=== PATIENT | female | born 1945 | race Caucasian/White ===

== ENCOUNTER → 2017-01-07 | Outpatient (CLI) | payer OTHER ==
[~2017-01-07] MED LIST: ASPEC325 PO; ASPEC81 PO; BRL90 PO; CEPH500C PO; CHOL100010 PO; LPR25 PO; LPT40 PO; LSN5 PO; LXT PO; MEGA VITAMIN PO; NTRSLP4 SL; OMEG10007 PO; OXYC-57 PO; [UNRECOGNIZED DRUG - OTHER] PO
[2017-01-07 10:51] LABS: CHOLESTEROL/HDL RATIO 2.3
== END | disposition home or self-care (01) ==
LOC: C.LAB 09:09
PROVIDERS: ATTEND Family Medicine
DX: E78.5 Hyperlipidemia, unspecified (principal)

== ENCOUNTER → 2017-04-18 | Outpatient (CLI) | payer OTHER ==
[2017-04-18 10:26] LABS: ALKALINE PHOSPHATASE 60 U/L (45-117); ALT/SGPT 27 U/L (12-78); AST/SGOT 20 U/L (15-37); CHOLESTEROL 190 mg/dl (0-200); CHOLESTEROL/HDL RATIO 2.6; HDL CHOLESTEROL 72 mg/dl; LDL CHOLESTEROL CALCULATED 77 mg/dl; TRIGLYCERIDES 205 mg/dl (0-150); VERY LOW DENSITY LIPOPROT CALC 41 mg/dl
== END | disposition home or self-care (01) ==
LOC: C.LAB 08:31
PROVIDERS: ATTEND Family Medicine
DX: E78.5 Hyperlipidemia, unspecified (principal)

== ENCOUNTER → 2017-04-22 | Outpatient (CLI) | payer OTHER ==
--- NOTE | 2017-04-23 07:54 | MAMMOGRAPHY REPORT ---
BILATERAL DIGITAL SCREENING MAMMOGRAM TOMOSYNTHESIS WITH CAD: 04/22/2017 CLINICAL HISTORY: Routine screening. Patient has no complaints. TECHNIQUE: Breast tomosynthesis in addition to standard 2D mammography was performed. Current study was also evaluated with a Computer Aided Detection (CAD) system. COMPARISON: Comparison is made to exams dated: 04/18/2016 ultrasound, 04/18/2016 mammogram, 04/05/2016 m ammogram, 03/25/2015 mammogram, 02/09/2014 mammogram, and 02/05/2013 mammogram - [facility] enter. BREAST COMPOSITION: There are scattered areas of fibroglandular density in both breasts. FINDINGS: There are diffuse bilateral coarse and punctate macro calcifications, and stable focal asym metry in the right upper outer quadrant. No suspicious mass, architectural distortion or cluster of microcalcifications is seen. IMPRESSION: ACR BI-RADS CATEGORY 1: NEGATIVE There is no mammographic evidence of malignancy. A 1 year screening mammogram is recommended. The pa tient will receive written notification of the results. Approximately 10% of breast cancers are not detected with mammography. A negative mammographic report should not delay biopsy if a clinically suggestive mass is present. Erica Parham M.D. ay/:04/22/2017 16:54:22 [facility]: Kat BROWNLEE)(Luis Miguel), [facility] letter sent: Normal 1/2 BI-RADS Code: ACR BI-RADS Category 1: Negative
== END | disposition home or self-care (01) ==
LOC: C.MAMM 14:01
PROVIDERS: ATTEND Family Medicine
DX: Z12.31 Encounter for screening mammogram for malignant neoplasm of breast (principal)

== ENCOUNTER 2017-04-24 14:38 | Inpatient (IN) | payer OTHER ==
[~2017-04-24] VITALS: Ht 167.6 cm; Wt 70.2 kg
[2017-04-24] VITALS (26 sets, daily range): BP systolic 93–114; BP diastolic 60–84; PULSE 59–120; TEMP 36.5–36.8; O2SAT 82–99; Ht 167.6 cm; Wt 70.2 kg
[~2017-04-24 14:38] MED LIST changes: -ASPEC81 PO; -BRL90 PO; -LPR25 PO; -LPT40 PO; -LSN5 PO; -NTRSLP4 SL
[2017-04-24] MEDS ORDERED: HEPARIN SOD (PORCINE) 1000 UNIT/ML 10 ML VIAL ONE ×2 (14:54→15:54)
[2017-04-24] MEDS ORDERED: NiCARDipine HCL INJ 2.5 MG/ML 10 ML AMP ONE (14:54)
[2017-04-24] MEDS ORDERED: FENTANYL CITRATE INJ 50 MCG/1 ML 2 ML VIAL ONE (14:55)
[2017-04-24] MEDS ORDERED: ASPIRIN 324 MG CHEW ONE (14:55)
[2017-04-24] MEDS ORDERED: MIDAZOLAM HCL 1 MG/ML 2ML VIAL ONE (14:55)
[2017-04-24] MEDS ORDERED: NITROGLYCERIN/D5W 100MCG/ML 20ML SYR ONE (14:57)
[2017-04-24] MEDS ORDERED: SODIUM CHLORIDE 0.9% 1000ML 1,000 ML IV STA (14:59)
[2017-04-24] MEDS ORDERED: ASPIRIN 324 MG CHEW PO ONE (15:00)
--- NOTE | 2017-04-24 15:09 | Procedure Note ---
Pre-Mod Sedation Assessment General Date of Moderate Sedation: Apr 24, 2017. Vital Signs: Vital Signs Past 12 Hours Date Time Temp Pulse Resp B/P (MAP) Pulse Ox O2 Delivery O2 Flow Rate FiO2 04/24/17 14:57 73 04/24/17 14:45 67 16 172/102 100 Room Air 04/24/17 14:45 100 Room Air Review Cardiovascular: regular rate, rhythm, no gallop Abdomen: normal bowel sounds, non tender Lungs: chest non-tender, lungs clear Airway Class: III Pre-Sedation Airway Assessment Oral Cavity: WNL Able to Visualize Vocal Cords: No Short Thick Neck: No Hx of Sleep Apnea: No Smoking Status: Never Smoker Mallampati Classification: Class II ASA Classification: Class III Procedure Planning Contraindications-for Mod Sed: None Yes Notes The planned sedation has been discussed with the patient and consent obtained. I have identified the patient, determined the appropriateness of sedation and have assessed the patient immediately prior to the procedure. All medicine(s) and interventions are by my order.
[2017-04-24 15:10] LABS: BASO % 0.2 %; BASO ABS # 0.02 K/uL (0-0.2); COMPLETE YES; EOS % 1.3 %; HEMATOCRIT 42.5 % (37-47); IG% 0.4 %; LYMPH % 16.6 %; LYMPH ABS # 1.77 K/uL (1.2-3.4); MEAN CELL VOLUME 94.9 fL (80-100); MEAN CORPUSCULAR HEMOGLOBIN 31.7 pg (25-34); MEAN CORPUSCULAR HGB CONC 33.4 g/dl (32-36); MEAN PLATELET VOLUME 10.9 fL (7.4-10.4); MONO % 5.3 %; NEUT % 76.2 %; PLATELET COUNT 230 K/uL (130-400); RED BLOOD COUNT 4.48 M/uL (4.2-5.4); WHITE BLOOD COUNT 10.67 K/uL (4.8-10.8)
[2017-04-24 15:17] LABS: ISTAT CREATININE 0.9 mg/dl (0.6-1.3); ISTAT HEMOGLOBIN 14.3 g/dl (12.0-16.0); ISTAT IONIZED CALCIUM 1.18 mmol/l (1.12-1.32)
[2017-04-24 15:19] LABS: PROTHROMBIN TIME (PATIENT) 10.6 SECONDS (9.0-12.0)
[2017-04-24] MEDS ORDERED: ATROPINE SULFATE 0.1 MG/ML 10 ML SYR ONE (15:35)
[2017-04-24 15:48] LABS: BUN/CREATININE RATIO 24.9 (10-20); CALCIUM 9.4 mg/dl (8.5-10.1); CREATININE 0.94 mg/dl (0.60-1.20)
[2017-04-24 15:51] LABS: POTASSIUM 4.3 mmol/L (3.5-5.1)
[2017-04-24] MEDS ORDERED: TICAGRELOR 90 MG TAB PO ONE (15:52)
[2017-04-24] MEDS ORDERED: ACETAMINOPHEN 325 MG TAB PO PRN (16:30)
[2017-04-24] MEDS ORDERED: ONDANSETRON INJ 2 MG/ML 2 ML VIAL IV PRN (16:30)
[2017-04-24] MEDS ORDERED: NITROGLYCERIN 0.4 MG SL PER TAB CHARGE SL PRN (16:30)
[2017-04-24] MEDS: SODIUM CHLORIDE 0.9% 1000ML 1,000 ML IV SCH ×2 (16:30→23:49)
--- NOTE | 2017-04-24 16:40 | Procedure Note ---
Post-Mod Sedation Assessment General Date of Moderate Sedation Apr 24, 2017. Vital Signs: Vital Signs Past 12 Hours Date Time Temp Pulse Resp B/P (MAP) Pulse Ox O2 Delivery O2 Flow Rate FiO2 04/24/17 16:19 72 16 103/58 (73) 95 Room Air 04/24/17 16:04 73 16 102/63 (76) 99 Mask 6 04/24/17 15:04 75 18 155/89 99 Room Air 04/24/17 15:00 100 Room Air 04/24/17 14:57 73 04/24/17 14:45 67 16 172/102 100 Room Air 04/24/17 14:45 100 Room Air Review - Discharge Criteria Vital Signs Stable: Yes Alert/Oriented/Conversant: Yes Returned to Baseline Mental St: Yes Nausea Absent/Minimal: Yes Pain/Discomfort/Absent/Minimal: Yes Normal/Baseline Respirations: Yes Active Bleeding?: Yes Pt Received D/C Instructions: No Prescriptions Given: None Specific Proced. D/C Criteria Distal Pulses Present (Cardiac: Yes Groin site assessed-Card Cath: N/A Voided Prior To Discharge: N/A Discharged Patients Adult Escort/Transportation: Yes
--- NOTE | 2017-04-24 16:58 | Cardiac Catheterization ---
Procedure Note Procedure Date Apr 24, 2017. Pre-Procedure Diagnosis STEMI AUC Score 9 Post-Procedure Diagnosis Severe CAD, Successful PCI, Normal LV Systolic Function, Normal Intracardiac Pressures Procedure(s) Performed Coronary Angiography, Left Heart Cath, LV Angiography, Drug Eluting Stent Security Services Manager Liban Cashier Or Checker Stock Clerk(s) Jennifer Estimated Blood Loss 15 Medication(s) Fentanyl, Heparin, Nicardipine, Versed, Lidocaine 1% Ticagrelor Summary of Findings Indication: STEMI/Heart Alert Access: 6Fr Slender Right radial artery Catheters: [place]; JR 4 guide, AR1 guide Findings: LM - Angiographically normal LAD - 50-60% early-mid focal stenosis right after take-off of 1st septal; distal LAD normal as wraps around apex; Circumflex - Luminal irregularities RCA - Dominant, anterior/downward take-off, 10-20% proximal disease, 100% acute occlusion in mid-segment; distal luminal irregularities. LVEDP - 6 LVEF 60%, hypokinesis at inferior base. -- PCI -- Antithrombotic therapy: Heparin, Ticagrelor Procedure: RCA eventually cannulated with AR1 guide BMW wire passed across lesion into distal vessel Mid RCA lesion predilated with 2.5 compliant balloon Dilated lesion stented with 3.5 x 30 Feliz NORA Stent post-dilated with 3.5 noncompliant balloon IC vasodilators administered for spasm Post procedure MARSHALL 3 flow, stent well expanded with minimal residual stenosis and no apparent cardiac complications. Arterial Closure: TR Band Summary: 1. Inferior STEMI/Occluded mid RCA 2. Intermediate residual coronary artery disease - 50-60% early-mid LAD stenosis 3. Normal intracardiac filling pressure. Preserved LV function. 4. Successful PCI of mid RCA with one drug-eluting stent (3.5 x 30 Feliz). Recommendations: Admit to ICU for continued monitoring Loaded with Ticagrelor 180 in laborer pole crew Continue dual-antiplatelet therapy for 1 year Trend troponins until peak, Check Echo Low dose beta-martha/RAYMON as BP allows tomorrow AM High-dose statin Consult cardiac Rehab Hemodynamics Rest Ao: 145/72/105 Final Ao: 81/40/59 LV: 89/6 Recommendations PCI without planned CABG Specimens None Radiation Exposure (mGy) 2508 Contrast (mls) 210 Visi Fluids (cc crystalloids) 350 Drains None Anesthesia Moderate Procedural Complication(s) None Disposition ICU ACC Data Cardiac Status Clinical evaluation leading to the procedure CAD Presntation: STEMI STEMI or Non-STEMI: Symptom Onset Date/Time: 13:30 Thrombolytics: No Anginal Classification: CCS IV Heart Failure: No, NYHA Class: CCS I Cardiogenic Shock w/in 24Hrs: No Cardiac Arrest w/in 24Hrs: No Imaging studies past 6 months: No Stress studies past 6 months: No Coronary Anatomy Dominant: Right LAD (% Stenosis): Mid (50-60) RCA (% Stenosis): Mid (100) Left Ventricular Angiography EF (%): 60 Wall Motion: Inferior (Hypokinetic) Mitral Regurgitation: 1+ Closure Device Percutaneous Entry Location: Radial Closure Device: Radial Band Recommendations: PCI without planned CABG PCI Indication: Immediate PCI for STEMI First Noted: First EKG Lesion Segment Name: mid RCA Culprit Artery: Yes Stenosis Prior to Rx (%): 100 Chronic Total Occlusion: No IVUS: No FFR: No Pre-Procedure MARSHALL Flow: 0 Previously Treated Lesion: No Lesion Complexity: Non-High/Non-C Lesion Length (mm): 25 Thrombus Present: Yes Bifurcation Lesion: No Guidewire Across Lesion: Yes Guidewire: Stenosis Post-Procedure (%): 0 Post-Procedure MARSHALL Flow: 3 Device(s) Deployed: Yes Intraprocedure Events Significant Dissection: No Perforation: No
--- NOTE | 2017-04-24 17:47 | Critical Care Consultation ---
Critical Care Consultation Date of Consultation: Apr 24, 2017. Attending Physician: Reinier Louie MD Reason for Consultation: Inferior STEMI status post PCI of Mid RCA X1 durg eluating stent require close monitoring. History of Present Illness This is a 72 y/o female with PMHx of hypercholesteremia presented to the ED with left sided shoulder pain since this morning around 11:00am. Patient reports that she has been having left shoulder pain for past 2 days. She states since she had the left shoulder replacement in 2009, she would have intermittent shoulder pain and this pain was similar. However today in the morning her left shoulder pain was very intense, 10/10, constant, radiating across her chest, neck and jaw. She also felt pressure like sensation on her left chest this morning. Associated symptoms includes nausea and diaphoresis. She was seen by her PCP yesterday for physical and reports she had intermittent left shoulder pain without radiation. Her physical was normal. She thought she might have a muscle strain. She took 2 tabs of Aleve, which she usually takes for her pain but didn't relieve her pain this morning. She decided to come to the ED for further evaluation. Patient reports that she is active and never had any chest pain or SOB with exertion or rest. In ED EKG showed inferior STEMI. Heart Alert was called. Patient was immediately taken to the pathology laboratory director and Dr. Louie performed the procedure. She found to have occluded mid RCA s/p X1 NORA, 50-60% stenosis of early mid LAD, normal intracardiac filling pressure with preserved LV function. Patient was reevaluated in ICU after cath. She reports that she doesn't have any pain now. Denies SOB, palpitation, dizziness, lightheaded, headache, nausea , vomiting, abd pain or any other symptoms. Past Medical/Surgical History hypercholesteremia Social History Smoking Status: Never Smoker Allergies Coded Allergies: Alcohol (Verified Adverse Reaction, Intermediate, (FROM WINE) FLU LIKE SX' S, NAUSEA, DIARRHEA, 01/12/10) Mary (Verified Adverse Reaction, Mild, HEADACHE, NAUSEA, 01/12/10) No Known Allergies (Verified , 01/12/10) NO KNOWN DRUG ALLERGIES Home Medications Scheduled Aspirin Enteric Coated (Ecotrin Or Generic *), 325 MG PO BID Cephalexin Monohydrate (Keflex), 500 MG PO QID Cholecalciferol (Vitamin D), 4,000 INTER.UNIT PO DAILY Fish Oil (Oketo-3), 1,800 MG PO DAILY Laxative (Laxative), 1 TAB PO DAILY PRN Oxycodone/Acetaminophen 5MG/325MG (Percocet 5MG/325MG), 1 TABLET PO Q4HR PRN [Calmax Powder], 1 TBS PO QID [Kodak Vitamin], 2 TAB PO DAILY Current Inpatient Medications Current Inpatient Medications Medications (Trade) Dose Ordered Sig/Molly Route Start Time Stop Time Status Last Admin Dose Admin Nitroglycerin (Nitrostat Tab) 0.4 mg UD PRN SL 04/24/17 16:30 05/24/17 16:29 Sodium Chloride 1,000 ml @ 125 mls/hr Q8H IV 04/24/17 16:30 04/25/17 00:29 Ondansetron HCl (Zofran Inj) 4 mg Q6H PRN IV 04/24/17 16:30 05/24/17 16:29 Aspirin (Ecotrin Tab) 81 mg QAM PO 04/25/17 09:00 05/25/17 08:59 Atorvastatin Calcium (Lipitor Tab) 80 mg QAM PO 04/25/17 09:00 05/25/17 08:59 Metoprolol Tartrate (Lopressor Tab) 12.5 mg Q12 PO 04/25/17 09:00 05/25/17 08:59 Lisinopril (Zestril Tab) 5 mg QAM PO 04/25/17 09:00 05/25/17 08:59 Acetaminophen (Tylenol Tab) 650 mg Q4H PRN PO 04/24/17 16:30 05/24/17 16:29 Ticagrelor (Brilinta Tab) 90 mg BID PO 04/24/17 21:00 05/24/17 20:59 Review of Systems Constitutional: No fever, No chills Eyes: No worsening of vision ENT: No trouble swallowing Respiratory: No cough, No sputum, No wheezing, No shortness of breath, No dyspnea on exertion, No dyspnea at rest Cardiovascular: No chest pain, No orthopnea, No PND, No edema, No claudication , No palpitations Abdomen: No pain, No nausea, No vomiting, No diarrhea, No constipation Musculoskeletal: No joint pain, No muscle pain, No swelling, No calf pain Genitourinary - Female: No dysuria Neurologic: No memory loss, No weakness, No numbness/tingling, No balance problems Endocrine: No fatigue Hematologic / Lymphatic: No abnormal bleeding/bruising, No clotting problems Integumentary: No rash Physical Exam Date Time Temp Pulse Resp B/P (MAP) Pulse Ox O2 Delivery O2 Flow Rate FiO2 04/24/17 16:19 72 16 103/58 (73) 95 Room Air 04/24/17 16:04 73 16 102/63 (76) 99 Mask 6 04/24/17 15:04 75 18 155/89 99 Room Air 04/24/17 15:00 100 Room Air 04/24/17 14:57 73 04/24/17 14:45 67 16 172/102 100 Room Air 04/24/17 14:45 100 Room Air General Appearance: well-appearing, WD/WN, no apparent distress Head: normocephalic, atraumatic Eyes: PERRLA, no discharge, EOMI, sclerae normal, conjunctivae normal ENT: normal nasal exam, normal mouth exam, normal throat exam Neck: no tenderness, trachea midline, supple, no thyromegaly Respiratory: breath sounds normal, clear to auscultation, no respiratory distress Cardiovasular: regular rate/rhythm, normal S1S2, no M/G/R Abdomen: non tender, normal bowel sounds, no rebound, no masses Upper Extremities: no edema Lower Extremities: no edema Neuro: alert, oriented x 3, normal sensation, normal speech Psychiatric: normal affect Laboratory Results Last 24 Hours Test 04/24/17 14:59 04/24/17 15:00 04/24/17 15:04 Bedside Troponin I 0.380 ng/ml White Blood Count 10.67 K/uL Red Blood Count 4.48 M/uL Hemoglobin 14.2 g/dL Hematocrit 42.5 % Mean Corpuscular Volume 94.9 fL Mean Corpuscular Hemoglobin 31.7 pg Mean Corpuscular Hemoglobin Concent 33.4 g/dl Platelet Count 230 K/uL Mean Platelet Volume 10.9 fL Neutrophils (%) (Auto) 76.2 % Lymphocytes (%) (Auto) 16.6 % Monocytes (%) (Auto) 5.3 % Eosinophils (%) (Auto) 1.3 % Basophils (%) (Auto) 0.2 % Neutrophils # (Auto) 8.13 K/uL Lymphocytes # (Auto) 1.77 K/uL Monocytes # (Auto) 0.57 K/uL Eosinophils # (Auto) 0.14 K/uL Basophils # (Auto) 0.02 K/uL RDW Standard Deviation 51.8 fL RDW Coefficient of Variation 14.9 % Immature Granulocyte % (Auto) 0.4 % Immature Granulocyte # (Auto) 0.04 K/uL Prothrombin Time 10.6 SECONDS Prothromb Time International Ratio 1.0 Activated Partial Thromboplast Time 25.6 SECONDS Partial Thromboplastin Ratio 1.0 Sodium Level 141 mmol/L Potassium Level 4.3 mmol/L Chloride Level 108 mmol/L Carbon Dioxide Level 23 mmol/L Anion Gap 10.0 mmol/L 14.0 mmol/L Blood Urea Nitrogen 23 mg/dl Creatinine 0.94 mg/dl Est Creatinine Clear Calc Drug Dose 54.5 ml/min Estimated GFR () 69.8 Estimated GFR (Non- 60.2 BUN/Creatinine Ratio 24.9 Random Glucose 104 mg/dl Calcium Level 9.4 mg/dl Bedside Hemoglobin 14.3 g/dl Bedside Hematocrit 42 % Bedside Sodium 140 mEq/L Bedside Potassium 4.1 mEq/L Bedside Chloride 106 mEq/L Bedside Total CO2 25 mEq/l Bedside Blood Urea Nitrogen 24 mg/dl Bedside Creatinine 0.9 mg/dl Bedside Glucose (other) 104 mg/dl Bedside Ionized Calcium ([place]) 1.18 mmol/l Assessment & Plan This is a 72 y/o female with PMHx of hypercholesteremia presented to the ED with left sided shoulder pain radiating to the neck, jaw and across shoulder. Inferior STEMI/occluded mid RCA s/p PCI of mid RCA X1 NORA. Neuro - * CAM ICU: NEGATIVE. * Acetaminophen 650mg q4h prn Cardiac - * Inferior STEMI/occluded mid RCA s/p PCI of mid RCA X1 drug eluating stent * Ticagrelor 90mg BID * Metoprolol 12.5mg BID and Lisinopril 5mg, monitor BP tomorrow am and adjust the dose accordingly * Atorvastatin 80mg * ASA 81mg daily * Nitro 0.4mg prn for pain * EKG with chest pain * Echo tomorrow * Patient needs to continue dual antiplatelet therapy for 1 yr * Consult cardiac rehab * Patient received heparin and bolus of ticagrelor prior to the procedure * Trend troponin q8h until peak Respiratory - * No h/o pulmonary disease. * Monitor pulse oximetry. * Supplemental O2 as needed. GI - * Diet : regular diet * Zofran 4mg q6h prn (QTc 441) RENAL/LYTES - * NSS @ 125mls/hr * Electrolytes are stable, check tomorrow am - * No Ramirez ENDO - * Order Hgb A1c - pending * No h/o DM * Order LDL direct - pending HEME - * No hx of heme problem * H&H and plt stable * Continue to monitor ID - * No concerns for infection at this point. * Will monitor fever curve. LINES/IV ACCESS - * PIVs intact DVT PROPHYLAXIS - * Ticagrelor, ASA Resident Physician Supervision Note: Dr. Miller was resident physician during care of patient. I separately evaluated patient and did history and exam. I discussed the case with the resident and generally agree with the findings and plan. routine post-cardiac cath care. Documented By: Inocencio Melchor DO
--- NOTE | 2017-04-24 18:04 | DIAGNOSTIC IMAGING REPORT ---
CHEST ONE VIEW PORTABLE CLINICAL HISTORY: 72 years-old Female presenting with CHEST PAIN. TECHNIQUE: Portable upright AP view of the chest was obtained. COMPARISON: None. FINDINGS: The presence of multiple overlying external leads degrade image quality. Cardiomediastinal silhouette normal. Lungs and pleural spaces clear. Left shoulder arthroplasty. Upper abdomen normal. IMPRESSION: 1. No acute cardiopulmonary disease. Electronically signed by: Hadley Bobby M.D. 04/24/2017 6:03 PM Dictated Date/Time: 04/24/2017 6:02 PM
--- NOTE | 2017-04-24 18:07 | EMERGENCY ROOM VISIT NOTE ---
History Report prepared by Jamison: Luz Romero Under the Supervision of: Dr. Inocencio Stewart M.D. First contact with patient: 14:48 Chief Complaint: CHEST PAIN Stated Complaint: CHEST PAIN, PAIN DOWN NECK, SHOULDER AND ARM History of Present Illness The patient is a 72 year old female who presents to the Emergency Room with complaints of intermittent chest pain for the past 2 days. Her pain is located in the left side of her chest and radiates into her left shoulder, down her left arm, and up into the left side of her neck. She has chronic left shoulder pain due to a previous shoulder replacement surgery, but states that this feels different. She took Aleve without any relief of her symptoms. This morning her pain began around 11am while she was cleaning her floor. She experienced some nausea and diaphoresis at that time. She states that her pain was severe. It is now less intense and she rates it as a 5/10 in severity. The patient denies shortness of breath, vomiting, or recent falls. She saw her PCP yesterday for an annual physical and states that everything was fine. Source of History: patient Onset: 2 days ago Position: chest Symptom Intensity: 5/10 Quality: other (radiating) Timing: intermittent Associated Symptoms: + diaphoresis, + neck pain (left sided), + nausea, No SOB, No vomiting Note: Pt has pain in left shoulder and down left arm. Review of Systems See HPI for pertinent positives & negatives. A total of 10 systems reviewed and were otherwise negative. Past Medical & Surgical Medical Problems: (1) AMI (acute myocardial infarction) Old medical records were reviewed. Nurse's notes were reviewed and I agree with. Family History Non-pertinent due to advanced age. Social History Smoking Status: Unknown if Ever Smoked Marital Status: Housing Status: lives alone Occupation Status: retired Current/Historical Medications Scheduled Aspirin Enteric Coated (Ecotrin Or Generic *), 325 MG PO BID Cephalexin Monohydrate (Keflex), 500 MG PO QID Cholecalciferol (Vitamin D), 4,000 INTER.UNIT PO DAILY Fish Oil ([place]-3), 1,800 MG PO DAILY Laxative (Laxative), 1 TAB PO DAILY PRN Oxycodone/Acetaminophen 5MG/325MG (Percocet 5MG/325MG), 1 TABLET PO Q4HR PRN [Calmax Powder], 1 TBS PO QID [Kodak Vitamin], 2 TAB PO DAILY Allergies Coded Allergies: Alcohol (Verified Adverse Reaction, Intermediate, (FROM WINE) FLU LIKE SX' S, NAUSEA, DIARRHEA, 01/12/10) Mary (Verified Adverse Reaction, Mild, HEADACHE, NAUSEA, 01/12/10) No Known Allergies (Verified , 01/12/10) NO KNOWN DRUG ALLERGIES Physical Exam Vital Signs Date Time Temp Pulse Resp B/P (MAP) Pulse Ox O2 Delivery O2 Flow Rate FiO2 04/24/17 16:34 82 112/68 (83) 95 04/24/17 16:34 82 112/68 (83) 90 04/24/17 16:33 83 107/71 (83) 04/24/17 16:33 83 107/71 (83) 04/24/17 16:30 36.5 82 20 107/71 94 Room Air 04/24/17 16:30 36.8 120 82 04/24/17 16:30 36.8 120 96 Room Air 04/24/17 16:19 72 16 103/58 (73) 95 Room Air 04/24/17 16:04 73 16 102/63 (76) 99 Mask 6 04/24/17 15:04 75 18 155/89 99 Room Air 04/24/17 15:00 100 Room Air 04/24/17 14:57 73 04/24/17 14:45 67 16 172/102 100 Room Air 04/24/17 14:45 100 Room Air Physical Exam General: Well developed well nourished non ill appearing older female that appears younger than stated age in no acute distress, breathing comfortably on room air. Normal speech HEENT: Normal cephalic atraumatic. Pupils are equal round and reactive to light. Extraocular movements are intact. Oropharynx is pink with moist mucous membranes. No swelling of the mouth lips or tongue. Neck: Supple with a midline trachea. No meningeal signs or stiffness, no JVD or bruits. No Stridor. Chest: Clear to auscultation bilaterally. No wheezes or rhonchi. No increased work of breathing. Heart: regular rate and rhythm. Abdomen: Soft nontender, nondistended without rebound guarding or rigidity. Extremities: No cyanosis clubbing or edema. No calf tenderness or assymetry Spine/Back. Non tender to palpation. No CVA tenderness Skin: Good turgor without rashes. Neurologic exam: Cranial nerves two through 12 are intact. Motor and sensation are intact and symmetrical throughout. Medical Decision & Procedures ER Provider Diagnostic Interpretation: Chest x-ray as interpreted by myself reveals no acute infiltrate, failure, or pneumothorax. Laboratory Results 04/24/17 15:00 Red Blood Count 4.48, Mean Corpuscular Volume 94.9, Mean Corpuscular Hemoglobin 31.7, Mean Corpuscular Hemoglobin Concent 33.4, Mean Platelet Volume 10.9, Neutrophils (%) (Auto) 76.2, Lymphocytes (%) (Auto) 16.6, Monocytes (%) (Auto) 5.3, Eosinophils (%) (Auto) 1.3, Basophils (%) (Auto) 0.2, Neutrophils # (Auto) 8.13, Lymphocytes # (Auto) 1.77, Monocytes # (Auto) 0.57, Eosinophils # (Auto) 0.14, Basophils # (Auto) 0.02 04/24/17 15:00 Test 04/24/17 14:59 04/24/17 15:00 04/24/17 15:04 Bedside Troponin I 0.380 ng/ml (0-0.045) White Blood Count 10.67 K/uL (4.8-10.8) Red Blood Count 4.48 M/uL (4.2-5.4) Hemoglobin 14.2 g/dL (12.0-16.0) Hematocrit 42.5 % (37-47) Mean Corpuscular Volume 94.9 fL (80-100) Mean Corpuscular Hemoglobin 31.7 pg (25-34) Mean Corpuscular Hemoglobin Concent 33.4 g/dl (32-36) Platelet Count 230 K/uL (130-400) Mean Platelet Volume 10.9 fL (7.4-10.4) Neutrophils (%) (Auto) 76.2 % Lymphocytes (%) (Auto) 16.6 % Monocytes (%) (Auto) 5.3 % Eosinophils (%) (Auto) 1.3 % Basophils (%) (Auto) 0.2 % Neutrophils # (Auto) 8.13 K/uL (1.4-6.5) Lymphocytes # (Auto) 1.77 K/uL (1.2-3.4) Monocytes # (Auto) 0.57 K/uL (0.11-0.59) Eosinophils # (Auto) 0.14 K/uL (0-0.5) Basophils # (Auto) 0.02 K/uL (0-0.2) RDW Standard Deviation 51.8 fL (36.4-46.3) RDW Coefficient of Variation 14.9 % (11.5-14.5) Immature Granulocyte % (Auto) 0.4 % Immature Granulocyte # (Auto) 0.04 K/uL (0.00-0.02) Prothrombin Time 10.6 SECONDS (9.0-12.0) Prothromb Time International Ratio 1.0 (0.9-1.1) Activated Partial Thromboplast Time 25.6 SECONDS (21.0-31.0) Partial Thromboplastin Ratio 1.0 Est Creatinine Clear Calc Drug Dose 54.5 ml/min Estimated GFR () 69.8 Estimated GFR (Non- 60.2 BUN/Creatinine Ratio 24.9 (10-20) Calcium Level 9.4 mg/dl (8.5-10.1) Bedside Hemoglobin 14.3 g/dl (12.0-16.0) Bedside Hematocrit 42 % (37-47) Bedside Sodium 140 mEq/L (135-144) Bedside Potassium 4.1 mEq/L (3.3-5.0) Bedside Chloride 106 mEq/L (101-112) Bedside Total CO2 25 mEq/l (24-31) Anion Gap 14.0 mmol/L (16-25) Bedside Blood Urea Nitrogen 24 mg/dl (7-18) Bedside Creatinine 0.9 mg/dl (0.6-1.3) Bedside Glucose (other) 104 mg/dl (70-99) Bedside Ionized Calcium ([place]) 1.18 mmol/l (1.12-1.32) Laboratory studies as stated above per my review. Medications Administered Medications (Trade) Dose Ordered Sig/Molly Route Start Time Stop Time Status Last Admin Dose Admin Heparin Sodium (Porcine) (Heparin Iv Bolus) 10,000 unit STK-MED ONCE .ROUTE 04/24/17 14:54 04/24/17 14:55 DC 04/24/17 14:54 10,000 UNIT Fentanyl Citrate (Fentanyl Inj) 100 mcg STK-MED ONCE .ROUTE 04/24/17 14:55 04/24/17 14:56 DC 04/24/17 14:55 25 MCG Midazolam HCl (Versed Inj) 2 mg STK-MED ONCE .ROUTE 04/24/17 14:55 04/24/17 14:56 DC 04/24/17 14:55 1 MG Aspirin (Aspirin Chew) 324 mg STK-MED ONCE .ROUTE 04/24/17 14:55 04/24/17 14:56 DC 04/24/17 15:06 324 MG Atropine Sulfate (Atropine Sulfate) 1 mg STK-MED ONCE .ROUTE 04/24/17 15:35 04/24/17 15:36 DC 04/24/17 15:35 1 MG Ticagrelor (Brilinta Tab) 180 mg STK-MED ONCE PO 04/24/17 15:52 04/24/17 15:53 DC 04/24/17 15:52 180 MG Heparin Sodium (Porcine) (Heparin Iv Bolus) 10,000 unit STK-MED ONCE .ROUTE 04/24/17 15:54 04/24/17 15:55 DC 04/24/17 15:54 1,000 UNIT Sodium Chloride 1,000 ml @ 125 mls/hr Q8H IV 04/24/17 16:30 04/25/17 00:29 04/24/17 16:30 125 MLS/HR ECG Indication: chest pain Rate (beats per minute): 63 Rhythm: normal sinus Findings: other (inferior FL with reciprocal lateral and anterior changes) Comparison ECG Date: no prior available ED Course 1448: Past medical records reviewed. The patient was evaluated in room B2, and a complete history and physical examination were performed. A heart alert was called in the ED at this time. 1457: Dr. Louie of cardiology arrived in the patient's room. We discussed her case and he will take her to the cardiac catheterization lab for further evaluation. 1459: NSS 1000 ml @ 999 mls/hr IV 1501: I updated the patient on her results and treatment plan. I answered all pertaining questions that she had. She expressed understanding and verbalized agreement. Medical Decision Differential diagnoses includes acute FL, cardiac disease, arrhythmia, electrolyte or metabolic abnormality. This patient comes in as described above. She was placed in room B2. The nurses came and got me as they were concerned about her EKG. I look at her EKG and she has ST segment elevations inferiorly with reciprocal changes laterally and anteriorly concerning for acute FL, likely RCA infarct. I went and saw the patient immediately. She had chest pain earlier and has only a mild amount now. She has stable vital signs she is normotensive. I called a heart alert promptly to get the care expedited as it was clear that this patient is having an acute FL. She was given aspirin chewable. Chest x-ray does not show any acute CHF or acute findings. She was not given any nitroglycerin as her symptoms were mild and there was concern for RV infarct. Dr. Louie promptly arrived and is going to take her to the [facility] for further treatment and evaluation and intervention. Medication Reconcilliation Current Medication List: was personally reviewed by me Blood Pressure Screening Patient's blood pressure: Normal blood pressure Consults Time Called: [id number] Consulting Physician: Dr. Louie Returned Call: [phone] Dr. Louie of cardiology arrived in the patient's room. We discussed her case and he will take her to the cardiac catheterization lab for further evaluation. Impression Primary Impression: Acute inferior myocardial infarction Scribe Attestation The scribe's documentation has been prepared under my direction and personally reviewed by me in its entirety. I confirm that the note above accurately reflects all work, treatment, procedures, and medical decision making performed by me. Departure Information Dispostion Other (cardiac catheterization lab) Referrals Jesse Dunlap M.D. (PCP) Patient Instructions My [facility]
--- NOTE | 2017-04-24 19:13 | HISTORY & PHYSICAL EXAMINATION ---
DATE OF ADMISSION: 04/24/2017 HISTORY OF PRESENT ILLNESS: Ms. So is a very pleasant 72-year-old woman with no real significant past medical history who was admitted today in the setting of acute onset of chest pain and found to have inferior ST elevations on MRI and was treated emergently in the cardiac catheterization lab. The patient noted intermittent chest pain over the last 2 days. Chest pain had been brief and rare but new. This morning at approximately 11:00 a.m., the patient developed severe unrelenting substernal chest pain with radiation to her left arm. The pain persisted for approximately an hour or so before she drove herself to the hospital. Upon arrival, the patient had 4/10 residual chest pain and EKG showed sinus rhythm but significant inferior ST elevations. Heart alert was activated and the patient was taken emergently to the cardiac catheterization lab where coronary angiography was performed via the right radial artery. The patient was found to have 50-60% mid LAD stenosis and an occluded mid RCA. She was treated with PCI with 1 drug-eluting stent placed to her mid RCA. A good angiographic result was obtained. Post-procedure she had minimal residual chest pain, was hemodynamically stable and was transferred to the ICU. PAST MEDICAL HISTORY: 1. Hypercholesterolemia. 2. Osteoarthritis status post shoulder replacement. 3. Vitamin D deficiency. MEDICATIONS: Include: 1. Aspirin 325. 2. Vitamin D 4000 units p.o. daily. 3. Fish oil 800 mg p.o. daily. 4. Laxative. 5. Oxycodone/acetaminophen 1 tab p.o. q.4 hours p.r.n. 6. CalMax powder 1 tab p.o. q.i.d. 7. Kodak Vitamin. ALLERGIES: ALLERGIC TO MELISSA. No other known drug allergies. FAMILY HISTORY: No family history of premature coronary disease or sudden cardiac . SOCIAL HISTORY: Is moving back to the [facility] from [place]. Her this October. Denies any significant tobacco, alcohol or other illicit drugs. REVIEW OF SYSTEMS: Ten point review of systems completed and otherwise negative unless stated in HPI. PHYSICAL EXAMINATION: VITAL SIGNS: On presentation, the patient was afebrile, pulse was 67, blood pressure was 172/107, satting 100% on room air. GENERAL: Post procedure the patient appears comfortable in no acute distress. HEENT: Sclerae are anicteric. Oropharynx is clear. Mucous membranes are moist. NECK: Supple, no lymphadenopathy. LUNGS: Clear to auscultation bilaterally. HEART: Regular rate and rhythm with no murmurs, rubs or gallops. ABDOMEN: Soft, nontender, nondistended with positive bowel sounds. EXTREMITIES: Warm. She has 2+ radial pulses bilaterally. TR band now in place. SKIN: Shows no rashes or lesions. NEUROLOGIC: Nonfocal. DATA: White blood cell count was 10.7, hemoglobin 14.2, platelets of 230. INR 1.0. Sodium 141, potassium 4.3, BUN 23, creatinine 0.9. Point of care troponin was 0.388. Chest x-ray was not obtained. Initial EKG showed sinus rhythm with up to [address] elevations in II, III, and aVF with reciprocal ST depressions in 1, aVL, and V2. IMPRESSION AND PLAN: 1. Inferior STEMI/occluded mid RCA. 2. Residual intermediate mid LAD stenosis. 3. Hyperlipidemia. 4. Preserved left ventricular function with inferior hypokinesis. 5. Mild mitral regurgitation on LV gram. Patient is here with an inferior ST elevation IL now status post primary percutaneous coronary intervention with 1 drug-eluting stent to mid RCA. Post-procedure she is hemodynamically and electrically stable and chest pain free. We will plan to admit to ICU for additional monitoring. She was loaded with ticagrelor in the clinical laboratory manager. Will plan to continue on dual antiplatelet therapy for at least the next year. We will plan to obtain echocardiogram tomorrow and trend her troponins until they peak. The patient was started on high intensity statin. We will plan to start on low dose beta martha, RAYMON inhibitor tomorrow as blood pressure allows. Will plan for cardiac rehabilitation as an outpatient. ARTURO
[2017-04-24] MEDS: TICAGRELOR 90 MG TAB PO SCH (21:09)
[2017-04-25] VITALS (15 sets, daily range): BP systolic 85–119; BP diastolic 49–65; PULSE 57–69; TEMP 36.6–37.2; O2SAT 93–98
[2017-04-25 05:35] LABS: BASO % 0.2 %; BASO ABS # 0.02 K/uL (0-0.2); COMPLETE YES; EOS % 2.5 %; HEMATOCRIT 37.6 % (37-47); IG% 0.5 %; LYMPH % 14.6 %; LYMPH ABS # 1.25 K/uL (1.2-3.4); MEAN CELL VOLUME 96.4 fL (80-100); MEAN CORPUSCULAR HEMOGLOBIN 31.3 pg (25-34); MEAN CORPUSCULAR HGB CONC 32.4 g/dl (32-36); MONO % 8.3 %; NEUT % 73.9 %; PLATELET COUNT 193 K/uL (130-400); WHITE BLOOD COUNT 8.54 K/uL (4.8-10.8)
[2017-04-25 06:03] LABS: BUN/CREATININE RATIO 24.8 (10-20); CALCIUM 8.4 mg/dl (8.5-10.1); CREATININE 0.81 mg/dl (0.60-1.20); MAGNESIUM 2.3 mg/dl (1.8-2.4)
[2017-04-25 06:13] LABS: PHOSPHORUS 4.3 mg/dl (2.5-4.9)
[2017-04-25] MEDS ORDERED: PERFLUTREN LIPID MICROSPHERE (DEFINITY) IV ONE (06:42)
[2017-04-25 06:55] LABS: ESTIMATED AVERAGE GLUCOSE 117 mg/dl; HA1C FLAG Normal (Normal)
[2017-04-25] MEDS: ATORVASTATIN 40 MG TAB PO SCH ×2 (07:32→09:02)
[2017-04-25] MEDS: ASPIRIN 81 MG ECTAB PO SCH (07:33)
[2017-04-25] MEDS: METOPROLOL TARTRATE 25 MG TAB PO SCH ×2 (07:34→20:50)
[2017-04-25] MEDS: LISINOPRIL 5 MG TAB PO SCH (07:34)
[2017-04-25] MEDS: TICAGRELOR 90 MG TAB PO SCH ×2 (08:23→20:50)
--- NOTE | 2017-04-25 09:23 | Critical Care Progress Note ---
Critical Care Progress Note Date of Service Apr 25, 2017. Attending Dr. Melchor Subjective Patient was seen at the bedside. No acute event overnight. Denies any chest pain , shoulder pain, SOB, palpitation, lightheaded or any other complaints. Objective Vital signs were reviewed GENERAL - Alert, well appearing, lying down on bed, no acute distress HEAD - NC/AT EYES - PERRL with EOMI bilaterally. Sclera anicteric. EARS - No deformities of external structures noted on gross examination bilaterally. MOUTH/OROPHARYNX - Without perioral cyanosis. Lips, buccal mucosa, and tongue normal and mucous membranes are moist. NECK - Supple, No lymphadenopathy, No nuchal rigidity, No JVD LUNGS - Chest wall symmetric. Good air movement bilaterally. No wheezing or rhonchi was noted. CARDIAC - RRR, normal S1/S2. No murmur, rubs, or gallops appreciated. ABDOMEN - Soft, non-tender, normo-active bowel sounds, no masses, no rebound or guarding. No palpable masses, hepatosplenomegaly, or ascites noted. EXTREMITIES - No edema, No clubbing/peripheral cyanosis. Calves supple. SKIN - Warm, dry, intact. No rash NEUROLOGIC - A&Ox3. Speech normal. Sensory intact to light touch throughout. PSYCH - Mood and affect appropriate. Assessment & Plan This is a 72 y/o female with PMHx of hyperlipidemia presented to the ED with left sided shoulder pain radiating to the neck, jaw and across shoulder. Inferior STEMI/occluded mid RCA s/p PCI of mid RCA X1 NORA. Patient is stable to be downgraded to [facility]. Neuro - * CAM ICU: NEGATIVE. * Acetaminophen 650mg q4h prn Cardiac - * Inferior STEMI/occluded mid RCA s/p PCI of mid RCA X1 drug eluating stent * Ticagrelor 90mg BID * Metoprolol 12.5mg BID and Lisinopril 5mg, BP 102/59 * Atorvastatin 80mg * ASA 81mg daily * Nitro 0.4mg prn for pain * EKG with chest pain * Echo was today morning - report pending * Patient needs to continue dual antiplatelet therapy for 1 yr * Consult cardiac rehab * Patient received heparin and bolus of ticagrelor prior to the cath * Troponin trend down Respiratory - * No h/o pulmonary disease. * Monitor pulse oximetry. * Supplemental O2 as needed. GI - * Diet : regular diet * Zofran 4mg q6h prn (QTc 441) RENAL/LYTES - * d/abhijit IVF * Electrolytes are stable, check tomorrow am - * No Ramirez ENDO - * Hgb A1c - 5.7 * No h/o DM * LDL direct - 43 HEME - * No hx of heme problem * H&H and plt stable ID - * No concerns for infection at this point. * Will monitor fever curve. LINES/IV ACCESS - * PIVs intact DVT PROPHYLAXIS - * Ticagrelor, ASA Resident Physician Supervision Note: Dr. Miller was resident physician during care of patient. I separately evaluated patient and did history and exam. I discussed the case with the resident and generally agree with the findings and plan. Discussed with patient clinical decisions to take high dose statin in the setting of recent acute WA. stable for downgrade to telemetry. Documented By: Inocencio Melchor DO Consults & Procedures Consultants: none Procedures: Cardiac catheterization Data Medications: Current Inpatient Medications Medications (Trade) Dose Ordered Sig/Molly Route Start Time Stop Time Status Last Admin Dose Admin Nitroglycerin (Nitrostat Tab) 0.4 mg UD PRN SL 04/24/17 16:30 05/24/17 16:29 Ondansetron HCl (Zofran Inj) 4 mg Q6H PRN IV 04/24/17 16:30 05/24/17 16:29 Aspirin (Ecotrin Tab) 81 mg QAM PO 04/25/17 09:00 05/25/17 08:59 Atorvastatin Calcium (Lipitor Tab) 80 mg QAM PO 04/25/17 09:00 05/25/17 08:59 Metoprolol Tartrate (Lopressor Tab) 12.5 mg Q12 PO 04/25/17 09:00 05/25/17 08:59 Lisinopril (Zestril Tab) 5 mg QAM PO 04/25/17 09:00 05/25/17 08:59 Acetaminophen (Tylenol Tab) 650 mg Q4H PRN PO 04/24/17 16:30 05/24/17 16:29 04/24/17 23:49 650 MG Ticagrelor (Brilinta Tab) 90 mg BID PO 04/24/17 21:00 05/24/17 20:59 04/24/17 21:09 90 MG Vital Signs: Date Time Temp Pulse Resp B/P (MAP) Pulse Ox O2 Delivery O2 Flow Rate FiO2 04/25/17 06:01 57 18 102/59 (74) 96 04/25/17 05:01 61 15 96/53 (56) 93 04/25/17 04:01 65 17 104/60 (71) 94 04/25/17 04:00 36.9 04/25/17 04:00 95 Room Air 04/25/17 03:01 66 16 96/55 (62) 95 04/25/17 02:01 69 15 101/54 (65) 95 04/25/17 01:01 64 16 96/65 (76) 95 04/25/17 00:01 57 18 119/64 (77) 96 04/25/17 00:01 37.2 04/24/17 23:59 93 Room Air 04/24/17 23:01 65 18 102/60 (64) 95 04/24/17 22:01 59 17 109/68 (77) 93 04/24/17 21:01 60 20 110/70 (88) 94 04/24/17 20:01 64 18 109/68 (78) 95 04/24/17 20:00 36.7 04/24/17 20:00 95 Room Air 04/24/17 20:00 64 18 109/68 (82) 94 04/24/17 19:25 64 17 103/65 (80) 94 04/24/17 19:16 66 18 93/65 (72) 94 04/24/17 19:01 63 16 99/62 (80) 95 04/24/17 19:00 67 16 99/62 (74) 95 04/24/17 18:23 68 100/62 (75) 85 04/24/17 18:15 77 94 04/24/17 18:00 76 93 04/24/17 17:46 83 106/66 (79) 04/24/17 17:46 83 106/66 (79) 04/24/17 17:45 78 93 04/24/17 17:45 78 93 04/24/17 17:32 75 108/79 (89) 96 04/24/17 17:32 75 108/79 (89) 96 04/24/17 17:30 77 94 04/24/17 17:30 77 94 04/24/17 17:16 72 114/84 (94) 91 04/24/17 17:16 72 114/84 (94) 91 04/24/17 17:15 69 99 04/24/17 17:15 69 99 04/24/17 17:02 74 106/66 (79) 96 04/24/17 17:02 74 106/66 (79) 96 04/24/17 17:00 73 97 04/24/17 17:00 73 97 04/24/17 16:46 74 105/71 (82) 04/24/17 16:46 74 105/71 (82) 04/24/17 16:45 73 97 04/24/17 16:45 73 97 04/24/17 16:34 82 112/68 (83) 95 04/24/17 16:34 82 112/68 (83) 90 04/24/17 16:33 83 107/71 (83) 04/24/17 16:33 83 107/71 (83) 04/24/17 16:30 36.5 82 20 107/71 94 Room Air 04/24/17 16:30 36.8 120 82 04/24/17 16:30 36.8 120 96 Room Air 04/24/17 16:19 72 16 103/58 (73) 95 Room Air 04/24/17 16:04 73 16 102/63 (76) 99 Mask 6 04/24/17 15:04 75 18 155/89 99 Room Air 04/24/17 15:00 100 Room Air 04/24/17 14:57 73 04/24/17 14:45 67 16 172/102 100 Room Air 04/24/17 14:45 100 Room Air Laboratory Results: Last 24 Hours Test 04/24/17 14:59 04/24/17 15:00 04/24/17 15:04 04/24/17 21:06 Bedside Troponin I 0.380 ng/ml White Blood Count 10.67 K/uL Red Blood Count 4.48 M/uL Hemoglobin 14.2 g/dL Hematocrit 42.5 % Mean Corpuscular Volume 94.9 fL Mean Corpuscular Hemoglobin 31.7 pg Mean Corpuscular Hemoglobin Concent 33.4 g/dl Platelet Count 230 K/uL Mean Platelet Volume 10.9 fL Neutrophils (%) (Auto) 76.2 % Lymphocytes (%) (Auto) 16.6 % Monocytes (%) (Auto) 5.3 % Eosinophils (%) (Auto) 1.3 % Basophils (%) (Auto) 0.2 % Neutrophils # (Auto) 8.13 K/uL Lymphocytes # (Auto) 1.77 K/uL Monocytes # (Auto) 0.57 K/uL Eosinophils # (Auto) 0.14 K/uL Basophils # (Auto) 0.02 K/uL RDW Standard Deviation 51.8 fL RDW Coefficient of Variation 14.9 % Immature Granulocyte % (Auto) 0.4 % Immature Granulocyte # (Auto) 0.04 K/uL Prothrombin Time 10.6 SECONDS Prothromb Time International Ratio 1.0 Activated Partial Thromboplast Time 25.6 SECONDS Partial Thromboplastin Ratio 1.0 Sodium Level 141 mmol/L Potassium Level 4.3 mmol/L Chloride Level 108 mmol/L Carbon Dioxide Level 23 mmol/L Anion Gap 10.0 mmol/L 14.0 mmol/L Blood Urea Nitrogen 23 mg/dl Creatinine 0.94 mg/dl Est Creatinine Clear Calc Drug Dose 54.5 ml/min Estimated GFR () 69.8 Estimated GFR (Non- 60.2 BUN/Creatinine Ratio 24.9 Random Glucose 104 mg/dl Calcium Level 9.4 mg/dl Bedside Hemoglobin 14.3 g/dl Bedside Hematocrit 42 % Bedside Sodium 140 mEq/L Bedside Potassium 4.1 mEq/L Bedside Chloride 106 mEq/L Bedside Total CO2 25 mEq/l Bedside Blood Urea Nitrogen 24 mg/dl Bedside Creatinine 0.9 mg/dl Bedside Glucose (other) 104 mg/dl Bedside Ionized Calcium ([place]) 1.18 mmol/l Bedside Glucose 98 mg/dl Test 04/24/17 21:52 04/25/17 05:12 04/25/17 05:15 Troponin I 33.400 ng/ml 20.500 ng/ml White Blood Count 8.54 K/uL Red Blood Count 3.90 M/uL Hemoglobin 12.2 g/dL Hematocrit 37.6 % Mean Corpuscular Volume 96.4 fL Mean Corpuscular Hemoglobin 31.3 pg Mean Corpuscular Hemoglobin Concent 32.4 g/dl Platelet Count 193 K/uL Mean Platelet Volume 11.0 fL Neutrophils (%) (Auto) 73.9 % Lymphocytes (%) (Auto) 14.6 % Monocytes (%) (Auto) 8.3 % Eosinophils (%) (Auto) 2.5 % Basophils (%) (Auto) 0.2 % Neutrophils # (Auto) 6.31 K/uL Lymphocytes # (Auto) 1.25 K/uL Monocytes # (Auto) 0.71 K/uL Eosinophils # (Auto) 0.21 K/uL Basophils # (Auto) 0.02 K/uL RDW Standard Deviation 53.7 fL RDW Coefficient of Variation 15.3 % Immature Granulocyte % (Auto) 0.5 % Immature Granulocyte # (Auto) 0.04 K/uL Sodium Level 145 mmol/L Potassium Level 4.0 mmol/L Chloride Level 115 mmol/L Carbon Dioxide Level 21 mmol/L Anion Gap 9.0 mmol/L Blood Urea Nitrogen 20 mg/dl Creatinine 0.81 mg/dl Est Creatinine Clear Calc Drug Dose 63.1 ml/min Estimated GFR () 83.5 Estimated GFR (Non- 72.1 BUN/Creatinine Ratio 24.8 Random Glucose 95 mg/dl Estimated Average Glucose 117 mg/dl Hemoglobin A1c 5.7 % Calcium Level 8.4 mg/dl Phosphorus Level 4.3 mg/dl Magnesium Level 2.3 mg/dl LDL Cholesterol Direct 43 mg/dl Bedside Glucose 89 mg/dl
--- NOTE | 2017-04-25 09:26 | ECHOCARDIOGRAM REPORT ---
*NOTICE TO RECEIVING REPUBLICAN AGENCY This information is strictly Confidential and protected under [place] law. [place] law prohibits you from making any further disclosure of this information unless further disclosure is expressly permitted by the written consent of the person to whom it pertains or is authorized by law. A general authorization for the release of medical or other information is not sufficient for this purpose. Hospital accepts no responsibility if the information is made available to any other person, INCLUDING THE PATIENT. Interpretation Summary * Name: JERALD JACKSON Study Date: 04/25/2017 06:13 AM BP: 96/53 mmHg * Patient Location: .[facility]ICU\S\E105\S\1 HR: 61 * : 1945 (M/d/yyy) Gender: Female Height: 66 in * Age: 72 yrs Ethnicity: CA Weight: 160 lb * Ordering Physician: MD Reinier Louie MD * Performed By: Rubi Jurado * * Reason For Study: AMI * BSA: 1.8 m2 * -- Conclusions -- * 1. Normal LV size and wall thickness. * 2. Normal LV systolic function. LVEF 60-65%. Mild basilar to mid inferior hypokinesis. * 3. Borderline dilated RV with normal function. * 4. Mild aortic valve sclerosis without stenosis. * 5. Borderline dilated ascending aorta (3.7 cm). * 6. No prior studies for comparison. Procedure Details * A complete two-dimensional transthoracic echocardiogram was performed (2D, M-mode, Doppler and color flow Doppler). * A contrast injection of Definity was performed to improve assessment of LV function. * Contrast was injected into an intravenous site in the left arm. * One vial of Definity ultrasound contrast was diluted in normal saline to a total volume of 10 ml. A total of '3' ml of solution was administered during imaging. * Lot # [id number] of Definity utilized for procedure. * Expiration date 05/15. Left Ventricle * The left ventricle is grossly normal size. * There is normal left ventricular wall thickness. * Ejection Fraction = 60-65%. * Mild basilar to mid inferior hypokinesis. Right Ventricle * Borderline right ventricular enlargement. * The right ventricular systolic function is normal as assessed by tricuspid annular plane systolic excursion (TAPSE) (normal >1.5 cm). Atria * The left atrial size is normal. * Right atrial size is normal. * No ASD detected; PFO is not assessed. Mitral Valve * The mitral valve is grossly normal. * There is no mitral valve stenosis. * Significant mitral regurgitation is absent. Tricuspid Valve * The tricuspid valve is not well visualized. * Significant tricuspid regurgitation is absent. Aortic Valve * Aortic valve sclerosis mild, without significant aortic valvular stenosis. * There is discrete nodular thickening of the non- coronary cusp. * No hemodynamically significant valvular aortic stenosis. * There is no significant aortic regurgitation. Pulmonic Valve * The pulmonary valve is inadequately visualized, but the Doppler data is adequate for interpretation. * There is no pulmonic valvular stenosis. * There is no significant pulmonary regurgitation. Great Vessels * Borderline dilated ascending aorta. * Asc Aorta 3.7 cm Pericardium/Pleural * There is no pericardial effusion. MMode 2D Measurements and Calculations IVSd 0.98 cm IVSs 1.5 cm LVIDd 3.8 cm LVIDs 2.5 cm LVPWd 0.77 cm LVPWs 1.5 cm IVS/LVPW 1.3 FS 33.8 % EDV(Teich) 61.6 ml ESV(Teich) 22.5 ml EF(Teich) 63.4 % EDV(cubed) 54.5 ml ESV(cubed) 15.8 ml EF(cubed) 71.0 % % IVS thick 53.0 % % LVPW thick 87.7 % LV mass(C)d 97.5 grams LV mass(C)dI 53.6 grams/m\S\2 LV mass(C)s 123.6 grams LV mass(C)sI 68.0 grams/m\S\2 CO(Teich) 2.2 l/min CI(Teich) 1.2 l/min/m\S\2 SV(Teich) 39.0 ml SI(Teich) 21.5 ml/m\S\2 CO(cubed) 2.2 l/min CI(cubed) 1.2 l/min/m\S\2 SV(cubed) 38.7 ml SI(cubed) 21.3 ml/m\S\2 ACS 1.4 cm asc Aorta Diam 3.7 cm LVOT diam 1.3 cm LVOT area 1.3 cm\S\2 LVAd ap4 29.4 cm\S\2 LVLd ap4 8.6 cm EDV(MOD-sp4) 82.2 ml LVAs ap4 14.2 cm\S\2 LVLs ap4 5.7 cm ESV(MOD-sp4) 30.4 ml EF(MOD-sp4) 63.0 % LVAd ap2 33.2 cm\S\2 LVLd ap2 8.6 cm EDV(MOD-sp2) 104.0 ml LVAs ap2 17.8 cm\S\2 LVLs ap2 6.8 cm ESV(MOD-sp2) 38.5 ml EF(MOD-sp2) 63.0 % CO(MOD-sp4) 2.9 l/min CI(MOD-sp4) 1.6 l/min/m\S\2 SV(MOD-sp4) 51.8 ml SI(MOD-sp4) 28.5 ml/m\S\2 CO(MOD-sp2) 3.7 l/min CI(MOD-sp2) 2.0 l/min/m\S\2 SV(MOD-sp2) 65.5 ml SI(MOD-sp2) 36.0 ml/m\S\2 Doppler Measurements and Calculations MV E max fartun 99.9 cm/sec MV A max fartun 106.7 cm/sec MV E/A 0.94 MV dec time 0.22 sec Ao V2 max 131.7 cm/sec Ao max PG 6.9 mmHg Ao max PG (full) 3.1 mmHg ELO(V,A) 0.94 cm\S\2 ELO(V,D) 0.94 cm\S\2 LV V1 max PG 3.9 mmHg LV V1 max 98.5 cm/sec PA V2 max 59.2 cm/sec PA max PG 1.4 mmHg
--- NOTE | 2017-04-25 09:36 | Cardiology Follow-Up ---
Subjective Subjective Date of Service: Apr 25, 2017. Pt evaluation today including: conversation w/ patient, physical exam, chart review, lab review, review of studies, review of inpatient medication list Additional Details: Feeling well. No chest pain. Mild headache overnight resolved. No pain at access site. Tele reviewed -- no events. Problem List Medical Problems: (1) Acute inferior myocardial infarction Status: Acute Review of Systems Constitutional: No fever, No chills Respiratory: No cough Cardiac: No chest pain Abdomen: No pain, No nausea Psychiatric: No depression symptoms Heme: No abnormal bleeding/bruising Skin: No rash Objective Vital Signs Last Vital Signs Documentation Date Time Temp Pulse Resp B/P (MAP) Pulse Ox O2 Delivery O2 Flow Rate FiO2 04/25/17 08:00 36.9 60 18 103/60 (74) 97 Room Air 04/24/17 16:04 6 Physical Exam: General Appearance: no apparent distress ENT: hearing grossly normal Neck: no JVD (JVP 7) Respiratory/Chest: lungs clear Cardiovascular: regular rate, rhythm, no edema, no JVD Abdomen: normal bowel sounds, non tender, soft Extremities: no pedal edema, no calf tenderness, + pertinent finding (right radial artery - no ecchymosis, hematoma. intact distal sensation and pulse.) Neurologic/Psychiatric: alert, normal mood/affect Skin: normal color, warm/dry Assessment and Plan 1. Inferior STEMI -- s/p PPCI to mid RCA with single NORA 2. Preserved LV function. 3. Dyslipidemia 4. Borderline ascending aorta dilation. Chest pain free. Hemodynamically and electrically stable. Troponin peaked overnight. LV function preserved on echo. -- Continue DAPT with ASA/Ticagrelor -- High-intensity statin -- Start low dose beta-martha, RAYMON today -- Transfer to telemetry, up walking darden today. Likely discharge tomorrow. Medications: Current Inpatient Medications Medications (Trade) Dose Ordered Sig/Molly Route Start Time Stop Time Status Last Admin Dose Admin Nitroglycerin (Nitrostat Tab) 0.4 mg UD PRN SL 04/24/17 16:30 05/24/17 16:29 Ondansetron HCl (Zofran Inj) 4 mg Q6H PRN IV 04/24/17 16:30 05/24/17 16:29 Aspirin (Ecotrin Tab) 81 mg QAM PO 04/25/17 09:00 05/25/17 08:59 04/25/17 07:33 81 MG Atorvastatin Calcium (Lipitor Tab) 80 mg QAM PO 04/25/17 09:00 05/25/17 08:59 04/25/17 09:02 80 MG Metoprolol Tartrate (Lopressor Tab) 12.5 mg Q12 PO 04/25/17 09:00 05/25/17 08:59 04/25/17 07:34 12.5 MG Lisinopril (Zestril Tab) 5 mg QAM PO 04/25/17 09:00 05/25/17 08:59 04/25/17 07:34 5 MG Acetaminophen (Tylenol Tab) 650 mg Q4H PRN PO 04/24/17 16:30 05/24/17 16:29 04/24/17 23:49 650 MG Ticagrelor (Brilinta Tab) 90 mg BID PO 04/24/17 21:00 05/24/17 20:59 04/25/17 08:23 90 MG Lab Results: 04/25/17 05:12 Red Blood Count 3.90, Mean Corpuscular Volume 96.4, Mean Corpuscular Hemoglobin 31.3, Mean Corpuscular Hemoglobin Concent 32.4, Mean Platelet Volume 11.0, Neutrophils (%) (Auto) 73.9, Lymphocytes (%) (Auto) 14.6, Monocytes (%) (Auto) 8.3, Eosinophils (%) (Auto) 2.5, Basophils (%) (Auto) 0.2, Neutrophils # (Auto) 6.31, Lymphocytes # (Auto) 1.25, Monocytes # (Auto) 0.71, Eosinophils # (Auto) 0.21, Basophils # (Auto) 0.02 04/25/17 05:12 Test 04/24/17 14:59 04/24/17 15:00 04/24/17 15:04 04/25/17 05:12 Bedside Troponin I 0.380 ng/ml (0-0.045) Prothrombin Time 10.6 SECONDS (9.0-12.0) Prothromb Time International Ratio 1.0 (0.9-1.1) Activated Partial Thromboplast Time 25.6 SECONDS (21.0-31.0) Partial Thromboplastin Ratio 1.0 Bedside Hemoglobin 14.3 g/dl (12.0-16.0) Bedside Hematocrit 42 % (37-47) Bedside Sodium 140 mEq/L (135-144) Bedside Potassium 4.1 mEq/L (3.3-5.0) Bedside Chloride 106 mEq/L (101-112) Bedside Total CO2 25 mEq/l (24-31) Bedside Blood Urea Nitrogen 24 mg/dl (7-18) Bedside Creatinine 0.9 mg/dl (0.6-1.3) Bedside Glucose (other) 104 mg/dl (70-99) Bedside Ionized Calcium ([place]) 1.18 mmol/l (1.12-1.32) White Blood Count 8.54 K/uL (4.8-10.8) Red Blood Count 3.90 M/uL (4.2-5.4) Hemoglobin 12.2 g/dL (12.0-16.0) Hematocrit 37.6 % (37-47) Mean Corpuscular Volume 96.4 fL (80-100) Mean Corpuscular Hemoglobin 31.3 pg (25-34) Mean Corpuscular Hemoglobin Concent 32.4 g/dl (32-36) Platelet Count 193 K/uL (130-400) Mean Platelet Volume 11.0 fL (7.4-10.4) Neutrophils (%) (Auto) 73.9 % Lymphocytes (%) (Auto) 14.6 % Monocytes (%) (Auto) 8.3 % Eosinophils (%) (Auto) 2.5 % Basophils (%) (Auto) 0.2 % Neutrophils # (Auto) 6.31 K/uL (1.4-6.5) Lymphocytes # (Auto) 1.25 K/uL (1.2-3.4) Monocytes # (Auto) 0.71 K/uL (0.11-0.59) Eosinophils # (Auto) 0.21 K/uL (0-0.5) Basophils # (Auto) 0.02 K/uL (0-0.2) RDW Standard Deviation 53.7 fL (36.4-46.3) RDW Coefficient of Variation 15.3 % (11.5-14.5) Immature Granulocyte % (Auto) 0.5 % Immature Granulocyte # (Auto) 0.04 K/uL (0.00-0.02) Anion Gap 9.0 mmol/L (3-11) Est Creatinine Clear Calc Drug Dose 63.1 ml/min Estimated GFR () 83.5 Estimated GFR (Non- 72.1 BUN/Creatinine Ratio 24.8 (10-20) Estimated Average Glucose 117 mg/dl Hemoglobin A1c 5.7 % (4.5-5.6) Calcium Level 8.4 mg/dl (8.5-10.1) Phosphorus Level 4.3 mg/dl (2.5-4.9) Magnesium Level 2.3 mg/dl (1.8-2.4) Troponin I 20.500 ng/ml (0-0.045) LDL Cholesterol Direct 43 mg/dl Test 04/25/17 05:15 Bedside Glucose 89 mg/dl (70-90) Date/Time Source Procedure Growth Status 04/24/17 17:30 Nasal MRSA DNA Surveillance Screen - Final Specimen Negative for MRSA by DNA Probe Complete
[2017-04-26 04:08] VITALS: BP 93/60; PULSE 56; TEMP 36.6; O2SAT 97
[2017-04-26 07:02] LABS: BASO % 0.3 %; BASO ABS # 0.02 K/uL (0-0.2); COMPLETE YES; EOS % 3.4 %; HEMATOCRIT 38.3 % (37-47); IG% 0.4 %; LYMPH % 17.8 %; LYMPH ABS # 1.31 K/uL (1.2-3.4); MEAN CELL VOLUME 95.8 fL (80-100); MEAN CORPUSCULAR HEMOGLOBIN 31.8 pg (25-34); MEAN CORPUSCULAR HGB CONC 33.2 g/dl (32-36); MEAN PLATELET VOLUME 11.1 fL (7.4-10.4); MONO % 6.7 %; NEUT % 71.4 %; PLATELET COUNT 180 K/uL (130-400); WHITE BLOOD COUNT 7.36 K/uL (4.8-10.8)
[2017-04-26 07:07] VITALS: BP 94/60; PULSE 56; TEMP 36.5; O2SAT 96
[2017-04-26 07:37] LABS: BUN/CREATININE RATIO 24.6 (10-20); CALCIUM 8.6 mg/dl (8.5-10.1); CREATININE 0.8 mg/dl (0.60-1.20); POTASSIUM 4.1 mmol/L (3.5-5.1)
[2017-04-26] MEDS: METOPROLOL TARTRATE 25 MG TAB PO SCH (08:03)
[2017-04-26] MEDS: TICAGRELOR 90 MG TAB PO SCH (08:03)
[2017-04-26] MEDS: LISINOPRIL 5 MG TAB PO SCH (08:03)
[2017-04-26] MEDS: ATORVASTATIN 40 MG TAB PO SCH (08:03)
[2017-04-26] MEDS: ASPIRIN 81 MG ECTAB PO SCH (08:03)
[2017-04-26 08:15] VITALS: BP 136/84; PULSE 61
[2017-04-26] MEDS ORDERED: BRL90 PO (10:12)
[2017-04-26] MEDS ORDERED: LPT40 PO (10:12)
[2017-04-26] MEDS ORDERED: LSN5 PO (10:12)
[2017-04-26] MEDS ORDERED: ASPEC81 PO (10:12)
[2017-04-26] MEDS ORDERED: LPR25 PO (10:12)
[2017-04-26] MEDS ORDERED: NTRSLP4 SL (10:12)
--- NOTE | 2017-04-26 10:14 | Discharge Instructions ---
Discharge Instructions Procedure Procedure Date: Apr 26, 2017. Reason for Visit: AMI. Discharge Discharge Date: Apr 26, 2017. Discharge Diagnosis: Acute Myocardial Infarction Post coronary artery stent Problem List: Medical Problems: (1) Acute inferior myocardial infarction Status: Acute Last Recorded Wt (Kilograms): 70.200 Anesthesia Post Anesthesia Instructions: If you have had General Anesthesia or IV Sedation: * Do not drive today. * Resume driving when surgeon permits. * Do not make important decisions or sign legal documents today. * Call surgeon for: 1. Temperature elevations greater than 101 degrees F. 2. Uncontrollable pain. 3. Excessive bleeding. 4. Persistent nausea and vomiting. 5. Medication intolerance (nausea, vomiting or rash). * For nausea and vomiting use only clear liquids such as: tea, soda, bouillon until nausea subsides, then gradually increase diet as tolerated. * If you have any concerns or questions, call your surgeon's office. If physician is unavailable and it is an emergency, call 911 or go to the nearest emergency room. Instructions Activity Recommendations: limitations as noted below Recommended Home Diet: low cholesterol Allergies: Coded Allergies: Alcohol (Verified Adverse Reaction, Intermediate, (FROM WINE) FLU LIKE SX' S, NAUSEA, DIARRHEA, 01/12/10) Mary (Verified Adverse Reaction, Mild, HEADACHE, NAUSEA, 01/12/10) No Known Allergies (Verified , 01/12/10) NO KNOWN DRUG ALLERGIES Follow Up Additional Instructions: ACTIVITY RECOMMENDATIONS: It is common to feel weak and fatigue for a few days. * Do not drive or operate any motorized equipment for the next three days. * Limit stair usage (2 or 3 trips a day only) for the next three days. * Do not lift anything heavier than 10 pounds for the next three days. * Do not engage in vigorous exercise or any sports for the next five days. * You may shower the day after your procedure, but do not immerse the area for three days. Cleanse the site gently with soap and water. SPECIAL CARE INSTRUCTIONS: * You may replace the pressure dressing or band-aid the morning after the procedure. * After your procedure, it is normal to have a small bruise or small lump at the site. Examine your site daily for any change in the bruise or lump, redness, swelling, drainage or numbness. Notify your doctor if any change. BLEEDING: * If there is a small amount of bleeding at the site, lie down and apply firm pressure with a clean cloth for ten minutes. When the bleeding stops, lie quietly keeping the procedure limb straight for six hours. Notify your doctor as soon as possible. * If the bleeding does not stop after ten minutes or if there is a large amount of bleeding or spurting, call 911 immediately. Continue to lie down and hold firm pressure until help arrives. SKIN IRRITATION: * You may experience some redness and/or swelling in the area where radiation was administered. If any skin irritation occurs, please contact your family physician. FOLLOW UP VISIT: Keep any scheduled doctor appointments. Follow-up with: Follow-up Dr. Louie in 2-3 weeks. Angelica Hyde Recommendations: Call your doctor if: * Temperature above 101 degrees * Pain not relieved by pain medicine ordered * There is increased drainage or redness from any incision * You have any unanswered questions or concerns. Your Doctors Instructions noted above were prepared by provider Zeus Louie. Patient Signature Section: Patient Instructions Signature Page [facility] Patient (or Guardian) Signature/Date: I have read and understand the instructions given to me by my caregivers. Caregiver/RN/Doctor Signature/Date: The above-named patient and/or guardian has received patient instructions on this date. + Original Patient Signature Page (only) stays with chart. Please make copy for patient.
[2017-04-26 10:35] VITALS: BP 136/84; PULSE 56; TEMP 36.5; O2SAT 96
--- NOTE | 2017-05-06 19:12 | DISCHARGE SUMMARY ---
ADMISSION DIAGNOSES: 1. Inferior ST-segment elevation myocardial infarction. 2. Multivessel coronary artery disease. 3. Dyslipidemia. 4. Borderline ascending aortic dilation. PROCEDURES: 1. Coronary angiography. 2. PCI with drug-eluting stent placement to mid RCA. 3. Echocardiogram. HISTORY OF PRESENT ILLNESS: Ms. So is a very pleasant 72-year-old woman with no significant past medical history, who was admitted from the Emergency Department after she presented with approximately 2-3 hours of unrelenting substernal chest pain with radiation to her left arm. She was found to have significant ST elevations on her initial presenting EKG and a heart alert was activated with emergent cardiac catheterization. She was found to have an occluded mid RCA which was treated with 1 drug-eluting stent with good angiographic result. She was also noted to have an intermediate mid LAD disease which was managed medically. Post-procedure, her troponin peaked at 33. Her echocardiogram on hospital day 2 showed normal LV size and function with an EF of 60-65% and only mild basilar to mid inferior hypokinesis. She was also noted to have borderline dilated ascending aorta at 3.7 cm. She was observed in the ICU for 2 additional days and on hospital day 3 was feeling well with no additional chest pain, hemodynamically stable and was discharged home on dual antiplatelet therapy with aspirin and Brilinta. She is to follow up with me in 3 weeks. DISCHARGE MEDICATIONS: Include aspirin 81, atorvastatin 80, lisinopril 5 mg, metoprolol 12.5 mg b.i.d., nitroglycerin 0.5 p.r.n. and ticagrelor 90 mg b.i.d. Additional medications include cholecalciferol 4000 units daily, fish oil 1 capsule p.o. daily, laxative p.r.n., home Percocet and multivitamin.
== END 2017-04-26 11:00 | disposition home or self-care (01) | DRG 247 ==
LOC: C.EDB 14:40 → C.MSICU 16:37 → C.2T 04-25 18:20
PROVIDERS: ADMIT Internal Medicine Interventional Cardiology; ATTEND Internal Medicine Interventional Cardiology
PROC: B210YZZ Fluoroscopy of Single Coronary Artery using Other Contrast (ICD-10-PCS; principal; 2017-04-24 15:00)
PROC: 027034Z Dilation of Coronary Artery, One Artery with Drug-eluting Intraluminal Device, Percutaneous Approach (ICD-10-PCS; principal; 2017-04-24 15:00)
PROC: 4A023N7 Measurement of Cardiac Sampling and Pressure, Left Heart, Percutaneous Approach (ICD-10-PCS; principal; 2017-04-24 15:00)
DX: I21.3 ST elevation (STEMI) myocardial infarction of unspecified site (principal); I25.2 Old myocardial infarction; Z79.82 Long term (current) use of aspirin

== ENCOUNTER → 2017-06-12 | Outpatient (CLI) | payer OTHER ==
[~2017-06-12] MED LIST changes: -ASPEC325 PO; +ASPEC81 PO; +BRL90 PO; -CEPH500C PO; +LPR25 PO; +LPT40 PO; +LSN5 PO; -LXT PO; -MEGA VITAMIN PO; +NTRSLP4 SL; -OXYC-57 PO; -[UNRECOGNIZED DRUG - OTHER] PO
[2017-06-12 10:47] LABS: CHOLESTEROL/HDL RATIO 1.3
== END | disposition home or self-care (01) ==
LOC: C.LAB 08:37
PROVIDERS: ATTEND Internal Medicine Interventional Cardiology
DX: E78.5 Hyperlipidemia, unspecified (principal)

== ENCOUNTER → 2017-09-09 | Outpatient (CLI) | payer OTHER ==
[2017-09-09 12:26] LABS: ALBUMIN 3.2 gm/dl (3.4-5.0); TOTAL PROTEIN 7.7 gm/dl (6.4-8.2)
== END | disposition home or self-care (01) ==
LOC: C.LAB 10:33
PROVIDERS: ATTEND Internal Medicine Interventional Cardiology
DX: E78.5 Hyperlipidemia, unspecified (principal)

== ENCOUNTER → 2017-09-18 | Outpatient (CLI) | payer OTHER ==
--- NOTE | 2017-09-18 12:12 | DIAGNOSTIC IMAGING REPORT ---
BILIARY ULTRASOUND CLINICAL HISTORY: R79.89 Elevated LFTs COMPARISON STUDY: No previous studies for comparison. FINDINGS: The gallbladder appears sonographically normal. No focal hepatic masses are visualized. There is very slight heterogeneity in hepatic echotexture.. There is no right-sided hydronephrosis. There is no ductal dilatation. The common bile duct measures 4 mm. There is limited visualization the pancreas. The pancreas where visualized appeared normal. IMPRESSION: 1. Very slight heterogeneity in hepatic echotexture. No focal masses identified 2. Ultrasonographically normal gallbladder. No evidence of ductal dilatation. 3. The pancreas appeared normal as visualized Electronically signed by: Jason Flores M.D. 09/18/2017 12:11 PM Dictated Date/Time: 09/18/2017 12:09 PM
== END | disposition home or self-care (01) ==
LOC: C.ULTR 10:56
PROVIDERS: ATTEND Internal Medicine Interventional Cardiology
DX: R79.89 Other specified abnormal findings of blood chemistry (principal)

== ENCOUNTER → 2017-09-26 | Outpatient (CLI) | payer OTHER ==
[2017-09-26 13:38] LABS: ALBUMIN 3.5 gm/dl (3.4-5.0); TOTAL PROTEIN 7.7 gm/dl (6.4-8.2)
== END | disposition home or self-care (01) ==
LOC: C.LAB1850 11:58
PROVIDERS: ATTEND Internal Medicine Interventional Cardiology
DX: R79.89 Other specified abnormal findings of blood chemistry (principal)

== ENCOUNTER → 2017-10-18 | Outpatient (CLI) | payer OTHER ==
[2017-10-18 09:54] LABS: ALBUMIN 3.6 gm/dl (3.4-5.0); TOTAL PROTEIN 7.6 gm/dl (6.4-8.2)
== END | disposition home or self-care (01) ==
LOC: C.LAB1850 08:25
PROVIDERS: ATTEND Family Medicine
DX: E78.5 Hyperlipidemia, unspecified (principal)

== ENCOUNTER 2022-12-19 10:15 | Observation (INO) ==
--- NOTE | 2022-12-19 10:29 | Emergency Department Note ---
Impression & Plan Stroke ADMIT ED Provider Note HPI: The patient is a 77-year-old female with history of coronary artery disease, who presents emergency department with a chief complaint of expressive aphasia. Patient states that she woke up at 5 AM, at that time she was noted to have some difficulty with her speech. She was able to communicate this to her nurse with some word finding difficulty but she does confirm to me that she woke up with the symptoms at 5 AM. On arrival here to the ED patient is outside the window for tPA. She does not otherwise exhibit any focal deficits. She is alert. She is able to follow commands appropriately. Patient is otherwise hemodynamically stable on arrival. She is saturating well on room air ROS: - Per HPI *Outpatient medications and allergy history reviewed. *Pertinent external medical records reviewed. PE: General: Alert HEENT: Normocephalic, trachea midline Eyes: Extraocular eye movement is intact, no scleral erythema Pulmonary: Clear to auscultation bilaterally, no wheezing Cardio: Regular rate and rhythm GI: Abdomen is soft to palpation : No suprapubic tenderness MSK: No evidence of trauma or malformation of the extremities, no edema Skin: No evidence of rash Neuro: Alert, no focal deficits, equal bilateral stained glass glazier strength, no ataxia on [id number] testing bilaterally, symmetrical facial movements are appreciated, there is no drift of the upper extremities or lower extremities with testing against gravity, patient exhibits expressive aphasia when asked to repeat sentences stated to her Psychiatric: Cooperative lunchroom monitor: (As interpreted by myself): - An order was placed for continuous cardiac monitoring - Patient was noted to be in sinus rhythm with a rate of 85 NIH STROKE SCALE: 1A: Level of consciousness Alert; keenly responsive 0 1B: Ask month and age Both questions right 0 1C: 'Blink eyes' & 'squeeze hands' Performs both tasks 0 2: Horizontal extraocular movements Normal 0 3: Visual ball No visual loss 0 4: Facial palsy Normal symmetry 0 5A: Left arm motor drift No drift for 10 seconds 0 5B: Right arm motor drift No drift for 10 seconds 0 6A: Left leg motor drift No drift for 5 seconds 0 6B: Right leg motor drift No drift for 5 seconds 0 7: Limb Ataxia No ataxia 0 8: Sensation Normal; no sensory loss 0 9: Language/aphasia Mild-moderate aphasia: some obvious changes, without significant limitation +1 10: Dysarthria Normal 0 11: Extinction/inattention No abnormality 0 TOTAL NIH SCORE = 1 EKG: (As interpreted by myself): Rate: 80 Rhythm: Normal sinus rhythm Intervals: Within normal limits ST changes: No ST elevation Time: 1027 Interventions provided in ED: -IV fluid:, Aspirin, Plavix Differential Diagnosis: Acute ischemic stroke, intracranial hemorrhage, hypoglycemic event, meningitis/infection, amongst other potential pathologies. Medical Decision Making: Patient presented to the emergency department with expressive aphasia, states that she noted the symptoms at around 5 AM when she woke up from sleep. On arrival here to the ED the patient overall appears well but she does have some word finding difficulty on my history, she is unable to repeat a sentence when it is stated to her. She does not have any focal motor deficits, she is otherwise hemodynamically stable and saturating well on room air, she is alert and oriented. IV was established and lab work obtained, patient noted to be outside the window for tPA. CT imaging of the head as well as CT angiography was obtained and I did discuss the patient's presentation with on-call stroke neurology at [facility], Dr. Ward. CT imaging is suggestive of a left temporal lobe infarct with sylvian branch of the left MCA noted to be occluded. On my discussion about imaging with Dr. Ward, patient is thought to be a poor candidate for potential interventional procedures given that her NIH scale score is low and he does note on his review of CT imaging that there appears to be some flow still noted distal to the sylvian branch occlusion. Patient's lab work is otherwise largely unremarkable, she was given aspirin and Plavix at the recommendation of stroke neurology. Patient is in agreement for admission, case was discussed with the on-call hospitalist for [facility], Dr. Garcia, and the patient was placed for admission in stable condition Consultants: -Stroke neurology at tertiary care facility, Dr. Ward -Hospitalist service, Dr. Garcia Disposition discussion held by myself with: Patient * CRITICAL CARE TIME: ( 45 ) minutes -Management of patient with acute stroke symptoms, outside the window for tPA but still within window for potential thrombectomy requiring consultation with tertiary care/stroke neurology for further management and disposition decision making, discussion with other healthcare providers and arrangement of admission. Diagnosis: 1. Acute stroke 2. Expressive aphasia Disposition: Admission Xavier Reeves DO Emergency Medicine Past Med/Surg History Medical History Coronary artery disease Fall GERD (gastroesophageal reflux disease) History of anesthesia reaction History of HI (myocardial infarction) (~04/24/21) Mild ascending aorta dilatation Osteoarthritis Surgical History History of bilateral cataract extraction History of cardiac cath (~04/24/21) History of colonoscopy History of heart artery stent (~04/24/21) History of hemiarthroplasty of left shoulder (~12/2009) History of tonsillectomy and adenoidectomy History of tooth extraction S/P appendectomy S/P hemorrhoidectomy Family History Mother Breast cancer Stroke Grandmother (Maternal) Breast cancer Other No family history of adverse response to anesthesia Denies family history of Ovarian cancer Prostate cancer Diabetes Alzheimer disease Myocardial infarction Colorectal cancer Social History Smoking Status: Never smoker Second Hand Exposure: No; Do You Dip or Chew Tobacco: No; Hx Alcohol Use: No Hx Substance Use: No Preferred Language: Bengali Communication Ability: Effective Hotel Night Auditor Required: No Beliefs That Will Affect Care: None marital status: / Current Living Situation: Alone current occupational status: retired Feels Safe at Home: Yes Childhood Exposure to Second-Hand Smoke: No Dental Care, Regularly: Yes Physical Activity Frequency: 3-4 Times per Week Seatbelt Use: always Sunscreen Use: Yes Assistive Devices: Glasses Allergies Allergies Allergy/AdvReac Type Severity Reaction Status Date / Time Sulfa (Sulfonamide Allergy Mild HEADACHE, Verified 11/09/22 13:43 Antibiotics) NAUSEA alcohol AdvReac Intermediate (FROM Verified 11/09/22 13:43 WINE) FLU LIKE SX'S, NAUSEA, DIARRHEA julian AdvReac Mild HEADACHE, Verified 11/09/22 13:43 NAUSEA Home Meds Home Medications Medication Instructions Recorded Confirmed aspirin 81 mg tablet 81 mg PO QAM 07/20/19 11/09/22 nitroglycerin 0.4 mg sublingual 0.4 mg sublingual Q5M PRN Angina 12/23/19 04/14/23 tablet omega-3 fatty acids 1,000 mg 1,000 mg PO QAM 11/14/21 11/09/22 capsule cholecalciferol (vitamin D3) 125 125 mcg PO 3XWK 10/29/22 11/09/22 mcg (5,000 unit) capsule oxymetazoline 0.05 % nasal spray 2 spray intranasal QPM PRN 10/29/22 11/09/22 (Afrin (oxymetazoline)) Previous Rx's Medication Instructions Recorded atorvastatin 10 mg tablet 5 mg PO QPM #45 tabs 06/07/22 metoprolol tartrate 25 mg tablet 12.5 mg PO QPM #30 tabs 06/07/22 omeprazole 20 mg capsule,delayed See Rx Instructions .Route 09/12/22 release .COMPLEX #30 caps mecobalamin (vitamin B12) 1,000 1,000 mcg PO 3XWK #30 tabs 10/29/22 mcg chewable tablet Results & Data (ED) Vital Signs Vital Signs - 24 hr 12/19/22 10:18 Temperature 36.6 C Temperature Source Temporal Artery Scan Pulse Rate 86 Respiratory Rate 18 Blood Pressure 143/82 H Blood Pressure Mean 102 Pulse Oximetry 97 Oxygen Delivery Method Room Air Sepsis Recent Fever Within 48 Hours No Sepsis New/Unexplained Change in Mental Status N/A Sepsis Action Taken by Nursing No Action Required Laboratory Data 12/19/22 10:29 12/19/22 10:29 Lab Results 12/19/22 12/19/22 12/19/22 Range/Units 10:29 10:29 10:29 WBC 6.78 (4.8-10.8) K/ul RBC 4.73 (4.20-5.40) M/uL Hgb 15.1 (12.0-16.0) g/dl POC Hgb (12.0-16.0) g/dl Hct 43.6 (37.0-47.0) % POC Hct (37-47) % MCV 92.2 (80.0-100.0) fL MCH 31.9 (25.0-34.0) pg MCHC 34.6 (32.0-36.0) g/dL RDW Std Deviation 47.7 H (36.4-46.3) fL RDW Coeff of Rocío 14.1 (11.5-14.5) % Plt Count 228 (130-400) K/uL MPV 11.1 (9.4-12.4) fL Immature Gran % (Auto) 0.3 % Neut % (Auto) 76.3 % Lymph % (Auto) 16.1 % Broome % (Auto) 6.3 % Eos % (Auto) 0.4 % Baso % (Auto) 0.6 % Neut # (Auto) 5.17 (1.40-6.50) K/uL Lymph # (Auto) 1.09 L (1.2-3.4) K/uL Broome # (Auto) 0.43 (0.11-0.59) K/uL Eos # (Auto) 0.03 (0-0.50) K/uL Baso # (Auto) 0.04 (0-0.2) K/uL Immature Gran # (Auto) 0.02 (0.01-0.20) K/uL PT 10.9 (9.0-12.0) Seconds INR 1.0 (0.9-1.1) APTT 24.5 (21.0-31.0) Seconds PTT Ratio 0.9 POC Sodium (135-144) mmol/L Sodium 133 L (136-145) mmol/L POC Potassium (3.3-5.0) mmol/L Potassium 4.4 (3.5-5.1) mmol/L POC Chloride (101-112) mmol/L Chloride 100 (98-107) mmol/L Carbon Dioxide 22 (21-32) mmol/L POC Total CO2 (24-31) mmol/L Anion Gap 11 (3-11) POC Anion Gap (16-25) mmol/L POC BUN (7-18) mg/dl BUN 13 (6-23) mg/dl Creatinine 1.11 (0.6-1.2) mg/dl POC Creatinine (0.6-1.3) mg/dl Est Cr Clr Drug Dosing 1.2 ml/min Est GFR ( Amer) 55.1 ml/min Est GFR (Non-Af Amer) 47.5 ml/min BUN/Creatinine Ratio 11.7 (10-20) Glucose 119 H (70-99(Fasting)) mg/dl POC Glucose (other) (70-99) mg/dl Calcium 9.6 (8.6-10.3) mg/dl POC Ioniz Calcium Florence (1.12-1.32) mmol/l Magnesium 1.9 (1.7-2.4) mg/dl Total Bilirubin 0.9 (0.2-1.0) mg/dl AST 23 (13-39) U/L ALT 18 (7-52) U/L Alkaline Phosphatase 66 (34-104) U/L Troponin I High Sens 8.2 (0-14) pg/ml Total Protein 7.5 (6.0-8.3) gm/dl Albumin 4.7 (3.4-5.0) gm/dl Globulin 2.8 (2.5-4.0) gm/dl Albumin/Globulin Ratio 1.7 (0.9-2) / Range/Units 10:31 WBC (4.8-10.8) K/ul RBC (4.20-5.40) M/uL Hgb (12.0-16.0) g/dl POC Hgb 16.0 (12.0-16.0) g/dl Hct (37.0-47.0) % POC Hct 47 (37-47) % MCV (80.0-100.0) fL MCH (25.0-34.0) pg MCHC (32.0-36.0) g/dL RDW Std Deviation (36.4-46.3) fL RDW Coeff of Rocío (11.5-14.5) % Plt Count (130-400) K/uL MPV (9.4-12.4) fL Immature Gran % (Auto) % Neut % (Auto) % Lymph % (Auto) % Broome % (Auto) % Eos % (Auto) % Baso % (Auto) % Neut # (Auto) (1.40-6.50) K/uL Lymph # (Auto) (1.2-3.4) K/uL Broome # (Auto) (0.11-0.59) K/uL Eos # (Auto) (0-0.50) K/uL Baso # (Auto) (0-0.2) K/uL Immature Gran # (Auto) (0.01-0.20) K/uL PT (9.0-12.0) Seconds INR (0.9-1.1) APTT (21.0-31.0) Seconds PTT Ratio POC Sodium 134 L (135-144) mmol/L Sodium (136-145) mmol/L POC Potassium 4.5 (3.3-5.0) mmol/L Potassium (3.5-5.1) mmol/L POC Chloride 99 L (101-112) mmol/L Chloride (98-107) mmol/L Carbon Dioxide (21-32) mmol/L POC Total CO2 21 L (24-31) mmol/L Anion Gap (3-11) POC Anion Gap 19.0 (16-25) mmol/L POC BUN 13 (7-18) mg/dl BUN (6-23) mg/dl Creatinine (0.6-1.2) mg/dl POC Creatinine 1.1 (0.6-1.3) mg/dl Est Cr Clr Drug Dosing ml/min Est GFR ( Amer) ml/min Est GFR (Non-Af Amer) ml/min BUN/Creatinine Ratio (10-20) Glucose (70-99(Fasting)) mg/dl POC Glucose (other) 130 H (70-99) mg/dl Calcium (8.6-10.3) mg/dl POC Ioniz Calcium Florence 1.18 (1.12-1.32) mmol/l Magnesium (1.7-2.4) mg/dl Total Bilirubin (0.2-1.0) mg/dl AST (13-39) U/L ALT (7-52) U/L Alkaline Phosphatase (34-104) U/L Troponin I High Sens (0-14) pg/ml Total Protein (6.0-8.3) gm/dl Albumin (3.4-5.0) gm/dl Globulin (2.5-4.0) gm/dl Albumin/Globulin Ratio (0.9-2) Administered Medications Discontinued Medications Aspirin (Aspirin Chew 324 Mg) 324 mg PO NOW STA Stop: 12/19/22 10:56 Last Admin: 12/19/22 11:00 Dose: 243 mg Documented By: SHER Clopidogrel Bisulfate (Clopidogrel Bisulfate 300 Mg Tab) 300 mg PO NOW STA Stop: 12/19/22 10:56 Last Admin: 12/19/22 11:02 Dose: 300 mg Documented By: SHER Sodium Chloride (Nss) 500 mls @ 999 mls/hr IV .Q31M ONE Stop: 12/19/22 11:25 Last Admin: 12/19/22 11:06 Dose: 999 mls/hr Documented By: SHER Ioversol (Optiray 320 500ml) 112 ml IV ONCE ONE Stop: 12/19/22 10:41 Last Admin: 12/19/22 10:34 Dose: 112 ml Documented By: BRM Imaging Data Radiologist's Impression: Head CT 12/19/22 10:27 CT OF THE HEAD WITHOUT CONTRAST CLINICAL HISTORY: neuro deficit, acute stroke suspected. Confusion. Right arm weakness. COMPARISON STUDY: No previous studies for comparison. TECHNIQUE: Helical axial images of the head were obtained without IV contrast. Automated exposure control was utilized for the study. A dose lowering technique was utilized adhering to the principles of ALARA. FINDINGS: No acute intracranial hemorrhage, midline shift or mass effect is present. The ventricular system is unremarkable. The basal cisterns are patent. No extra-axial collections are present. There is a possible 2.2 cm hypodense focus with loss of ramirez-white differentiation within the posterior left temporal lobe on axial image 18 of 32. White matter hypodensity suggests small vessel disease. There are no significant calvarial abnormalities. IMPRESSION: 1. No acute intracranial hemorrhage or mass effect. 2. Possible 2.2 cm hypodense focus with loss of ramirez-white differentiation within the posterior left temporal lobe. This may be artifactual however an acute infarct could appear similar. ACT 112: Negative or not required by law. Electronically signed by: Hardeep Warren M.D. 12/19/2022 10:52 AM Head CTA 12/19/22 10:27 CTA ANGIOGRAPHY OF THE HEAD CLINICAL HISTORY: neuro deficit, acute stroke suspected COMPARISON STUDY: No previous studies for comparison. TECHNIQUE: Helical axial images of the head were obtained following uneventful intravenous administration of 112 cc of Optiray. Sagittal and coronal reconstructions were viewed as well as maximal intensity projections on an independent 3-D workstation. Automated exposure control was utilized for the study. A dose lowering technique was utilized adhering to the principles of ALARA. CT DOSE: 936.36 mGy.cm FINDINGS: No acute intracranial hemorrhage is identified on the head CT will be reported separately. Brain volume is normal. Ventricular system is normal. Basal cisterns are patent. There are no extra-axial collections. There is occlusion of a sylvian branch of the left middle cerebral artery on axial image 144 of 276. No additional sites of vessel occlusion are identified. There is no intracranial aneurysm. There is mild plaque within the bilateral cavernous carotids without stenosis. The left vertebral artery is dominant. The basilar artery is patent. Posterior cerebral arteries are patent. Major dural sinuses are patent. IMPRESSION: 1. Occlusion of a sylvian branch of the left middle cerebral artery. This likely accounts for the patient's symptoms. Findings discussed with Dr. Reeves at time of dictation. 2. No additional sites of vessel occlusion within the intracranial vessels. No aneurysms. ACT 112: Negative or not required by law. Electronically signed by: Hardeep Warren M.D. 12/19/2022 11:00 AM Neck CTA 12/19/22 10:27 CT ANGIOGRAPHY OF THE NECK WITH CONTRAST CLINICAL HISTORY: neuro deficit, acute stroke suspected COMPARISON STUDY: No previous studies for comparison. Technique: CT angiography of the carotid and vertebral arteries was obtained using Optiray and 3D reconstruction on an independent workstation. NASCET criteria was utilized. Automated exposure control was utilized for the study. A dose lowering technique was utilized adhering to the principles of ALARA. Findings: Visualized portions of the lung apices are unremarkable. There is no cervical lymphadenopathy. No acute cervical spine fracture is present. There is mild plaque within the distal left common carotid artery without stenosis. There is no stenosis within the bilateral common carotid, cervical internal carotid or vertebral arteries. The left vertebral artery is dominant. There is no dissection or aneurysm within the neck. Mild irregularity of the mid cervical left ICA without stenosis or dissection. IMPRESSION: 1. No stenosis or dissection within the bilateral common carotid, cervical internal carotid or vertebral arteries. 2. Mild atherosclerotic plaque within the distal left common carotid artery. ACT 112: Negative or not required by law. Electronically signed by: Hardeep Warren M.D. 12/19/2022 10:57 AM Discharge Plan Visit Data Chief Complaint: Stroke/CVA Symptoms Stated Complaint: STROKE SYMPTOMS, CONFUSED ED Provider: Xavier Reeves Discharge Problem: Stroke Forms Stand Alone Forms: [facility] Prescriptions Prescriptions: No Action omeprazole 20 mg capsule,delayed release(DR/EC) See Rx Instructions .ROUTE .COMPLEX Qty: 30 5RF Dose Instruction: TAKE 1 CAPSULE BY MOUTH ONCE DAILY Rx Instructions: TAKE 1 CAPSULE BY MOUTH ONCE DAILY atorvastatin 10 mg tablet 5 mg PO QPM Qty: 45 3RF metoprolol tartrate 25 mg tablet 12.5 mg PO QPM Qty: 30 11RF oxymetazoline [Afrin (oxymetazoline)] 0.05 % spray,non-aerosol 2 spray intranasal QPM PRN cholecalciferol (vitamin D3) 125 mcg (5,000 unit) capsule 125 mcg PO 3XWK mecobalamin (vitamin B12) 1,000 mcg tablet,chewable 1,000 mcg PO 3XWK Qty: 30 0RF aspirin 81 mg tablet 81 mg PO QAM nitroglycerin 0.4 mg tablet, sublingual 0.4 mg SL Q5M PRN (Reason: Angina) omega-3 fatty acids 1,000 mg capsule 1,000 mg PO QAM Referrals Referrals: Isiah Perkins MD [Primary Care Provider] -
[2022-12-19] MEDS ORDERED: OPTIRAY 320 500ml IV ONE (10:40)
[2022-12-19 10:43] LABS: iSTAT Creatinine 1.1 mg/dl (0.6-1.3); iSTAT Ionized Calcium 1.18 mmol/l (1.12-1.32); iSTAT Potassium 4.5 mmol/L (3.3-5.0)
[2022-12-19 10:50] LABS: Basophils # (auto) 0.04 K/uL (0-0.2); Basophils % (auto) 0.6 %; Eosinophils # (auto) 0.03 K/uL (0-0.50); Eosinophils % (auto) 0.4 %; Hematocrit (blood only) 43.6 % (37.0-47.0); Hemoglobin 15.1 g/dl (12.0-16.0); Immature Granulocytes # (auto) 0.02 K/uL (0.01-0.20); Immature Granulocytes % (auto) 0.3 %; Lymphocytes # (auto) 1.09 K/uL (1.2-3.4); Lymphocytes % (auto) 16.1 %; Mean Corpuscular Hemoglobin 31.9 pg (25.0-34.0); Mean Corpuscular Hgb Conc 34.6 g/dL (32.0-36.0); Mean Corpuscular Volume 92.2 fL (80.0-100.0); Mean Platelet Volume 11.1 fL (9.4-12.4); Monocytes # (auto) 0.43 K/uL (0.11-0.59); Monocytes % (auto) 6.3 %; Neutrophils # (auto) 5.17 K/uL (1.40-6.50); Neutrophils % (auto) 76.3 %; Platelet Count 228 K/uL (130-400); RDW Coefficient of Variation 14.1 % (11.5-14.5); RDW Standard Deviation 47.7 fL (36.4-46.3); Red Blood Count 4.73 M/uL (4.20-5.40); White Blood Count 6.78 K/ul (4.8-10.8)
--- NOTE | 2022-12-19 10:53 | CT Scan Report ---
CT OF THE HEAD WITHOUT CONTRAST CLINICAL HISTORY: neuro deficit, acute stroke suspected. Confusion. Right arm weakness. COMPARISON STUDY: No previous studies for comparison. TECHNIQUE: Helical axial images of the head were obtained without IV contrast. Automated exposure con trol was utilized for the study. A dose lowering technique was utilized adhering to the principles o f ALARA. FINDINGS: No acute intracranial hemorrhage, midline shift or mass effect is present. The ventricular system is unremarkable. The basal cisterns are patent. No extra-axial collections are present. There is a possible 2.2 cm hypodense focus with loss of ramirez-white differentiation within the posterior lef t temporal lobe on axial image 18 of 32. White matter hypodensity suggests small vessel disease. Ther e are no significant calvarial abnormalities. IMPRESSION: 1. No acute intracranial hemorrhage or mass effect. 2. Possible 2.2 cm hypodense focus with loss of ramirez-white differentiation within the posterior left temporal lobe. This may be artifactual however an acute infarct could appear similar. ACT 112: Negative or not required by law. Electronically signed by: Hardeep Warren M.D. 12/19/2022 10:52 AM
[2022-12-19] MEDS ORDERED: ASPIRIN CHEW 324 MG PO STA (10:55)
[2022-12-19] MEDS ORDERED: CLOPIDOGREL BISULFATE 300 MG TAB PO STA (10:55)
[2022-12-19] MEDS ORDERED: SODIUM CHLORIDE 0.9% 500 ML IV ONE (10:55)
--- NOTE | 2022-12-19 11:00 | CT Scan Report ---
CT ANGIOGRAPHY OF THE NECK WITH CONTRAST CLINICAL HISTORY: neuro deficit, acute stroke suspected COMPARISON STUDY: No previous studies for comparison. Technique: CT angiography of the carotid and vertebral arteries was obtained using Optiray and 3D rec onstruction on an independent workstation. NASCET criteria was utilized. Automated exposure control was utilized for the study. A dose lowering technique was utilized adhering to the principles of ALA RA. Findings: Visualized portions of the lung apices are unremarkable. There is no cervical lymphadenopat hy. No acute cervical spine fracture is present. There is mild plaque within the distal left common c arotid artery without stenosis. There is no stenosis within the bilateral common carotid, cervical in ternal carotid or vertebral arteries. The left vertebral artery is dominant. There is no dissection o r aneurysm within the neck. Mild irregularity of the mid cervical left ICA without stenosis or dissec tion. IMPRESSION: 1. No stenosis or dissection within the bilateral common carotid, cervical internal carotid or verteb ral arteries. 2. Mild atherosclerotic plaque within the distal left common carotid artery. ACT 112: Negative or not required by law. Electronically signed by: Hardeep Warren M.D. 12/19/2022 10:57 AM
--- NOTE | 2022-12-19 11:01 | CT Scan Report ---
CTA ANGIOGRAPHY OF THE HEAD CLINICAL HISTORY: neuro deficit, acute stroke suspected COMPARISON STUDY: No previous studies for comparison. TECHNIQUE: Helical axial images of the head were obtained following uneventful intravenous administr ation of 112 cc of Optiray. Sagittal and coronal reconstructions were viewed as well as maximal inten sity projections on an independent 3-D workstation. Automated exposure control was utilized for the study. A dose lowering technique was utilized adhering to the principles of ALARA. CT DOSE: 936.36 mGy.cm FINDINGS: No acute intracranial hemorrhage is identified on the head CT will be reported separately. Brain volume is normal. Ventricular system is normal. Basal cisterns are patent. There are no extra-a xial collections. There is occlusion of a sylvian branch of the left middle cerebral artery on axial image 144 of 276. No additional sites of vessel occlusion are identified. There is no intracranial an eurysm. There is mild plaque within the bilateral cavernous carotids without stenosis. The left verte bral artery is dominant. The basilar artery is patent. Posterior cerebral arteries are patent. Major dural sinuses are patent. IMPRESSION: 1. Occlusion of a sylvian branch of the left middle cerebral artery. This likely accounts for the pat ient's symptoms. Findings discussed with Dr. Reeves at time of dictation. 2. No additional sites of vessel occlusion within the intracranial vessels. No aneurysms. ACT 112: Negative or not required by law. Electronically signed by: Hardeep Warren M.D. 12/19/2022 11:00 AM
[2022-12-19 11:03] LABS: Albumin Globulin Ratio 1.7 (0.9-2); Albumin Level 4.7 gm/dl (3.4-5.0); BUN Creatinine Ratio 11.7 (10-20); Bilirubin,Total 0.9 mg/dl (0.2-1.0); Calcium 9.6 mg/dl (8.6-10.3); Creatinine Clr Calc Pharmacy 1.2 ml/min; Est GFR (African American) 55.1 ml/min; Est GFR (Non-African American) 47.5 ml/min; Globulin 2.8 gm/dl (2.5-4.0); Magnesium 1.9 mg/dl (1.7-2.4); Potassium 4.4 mmol/L (3.5-5.1); Total Protein 7.5 gm/dl (6.0-8.3)
[2022-12-19 11:09] LABS: Troponin I High Sensitivity 8.2 pg/ml (0-14)
[2022-12-19 11:21] LABS: Partial Thromboplastin Ratio 0.9; Partial Thromboplastin Time 24.5 Seconds (21.0-31.0); Prothrombin Time 10.9 Seconds (9.0-12.0)
--- NOTE | 2022-12-19 11:27 | Electrocardiogram Report ---
Test Reason : Blood Pressure : / mmHG Vent. Rate : 080 BPM Atrial Rate : 080 BPM P-R Int : 136 ms QRS Dur : 074 ms QT Int : 368 ms P-R-T Axes : 025 -29 019 degrees QTc Int : 424 ms Normal sinus rhythm Low voltage QRS Poor R wave progression, consider anterior [place] vs. lead placement vs. LVH Abnormal ECG When compared with ECG of 25-APR-2017 08:10, Questionable change in initial forces of Anterior leads Confirmed by Elvis Pond ([id number]) on 12/19/2022 11:26:48 AM Referred By: REFERRED SELF Confirmed By:Elvis Pond
--- NOTE | 2022-12-19 12:18 | History & Physical Report ---
Date of Service December 19, 2022 Assessment & Plan (1) Left temporal lobe infarction: Plan: Acute, unstable 77 year old with CAD who awoke this AM with expressive aphasia and last known well was last evening prior to bed. NIH score was low at 1. CTA imaging suggestive of a left temporal lobe infarct with sylvian branch of the left MCA noted to be occluded.call box wirer stroke neurology visit with Dr Villela and Dr Ward at [facility] was done earlier. Dr Ward stated patient is thought to be a poor candidate for potential interventional procedures given that her NIH scale score is low and he does note on his review of CT imaging that there appears to be some flow still noted distal to the sylvian branch occlusion. - Admit to PCU - Patient was given ASA 324mg and Plavix 300mg this AM in the ER - Continue Dual antiplatelet therapy for next 3 weeks - Await MRI head without contrast - If worsening or changing sxs may need a repeat CT to r/o any bleed - fall precautions, aspiration precautions - stroke parameters - allow with permissive hypertension and will order Labetalol 5mg IV q 10 minutes (max 3 doses) for Systolic BP >220 - Neurology consult - speech eval and then heart healthy diet (2) Coronary artery disease: Plan: Chronic Metoprolol held Has labetalol on for permissive hypertension (3) Dyslipidemia: Plan: Chronic, stable Continue Atorvastatin 10mg (4) GERD (gastroesophageal reflux disease): Plan: Chronic, Stable low dose PPI at home will order Protonix 40mg IV daily (5) Vitamin D deficiency disease: Plan: chronic, stable continue Vitamin D replacement (6) Vitamin B12 deficiency: Plan: Chronic stable Continue replacement History of Present Illness Chief Complaint: expressive aphasia Primary Care Provider: Isiah Perkins MD [facility] So is a 77 year old female with a past medical history of CAD, B12 deficiency and vit D deficiency who presented to the ER today with complaints of difficulty with her speech and right arm dysfunction. Patient states she awoke at 5AM with "funny" feeling in her right arm. Last known well was prior to going to bed last evening st 10 PM. Patient tells me that she lives alone with her cats and she states that her right arm didn't feel right, was no numb but maybe felt weak and was not functioning normally. Patient states when she arrived here she noticed she had difficulty speaking, per ER records she had some expressive aphasia and was not able to repeat sentences. Currently she is able to repeat sentences but has some dysarthria. She has never had a CVA or TIA in the past. Upon arrival to the ER she was out of the window for tPA. Dr Villela ordered CT head, CTA neck and CTA head. CT imaging of the head as well as CT angiography. Dr Villela spoke with on-call stroke neurology at [facility], Dr. Ward. CT imaging is suggestive of a left temporal lobe infarct with sylvian branch of the left MCA noted to be occluded. After disuccsing with ER physician Dr Villela, who stated that Dr. Ward, stated that patient is thought to be a poor candidate for potential interventional procedures/thrombectomy given that her NIH scale score is low (1) and he does note on his review of CT imaging that there appears to be some flow still noted distal to the sylvian branch occlusion. Imaging and labs done in ER and seen below. Patient has received ASA 324mg and Plavix 300mg at 10:55 AM. Allergies Allergy/AdvReac Type Severity Reaction Status Date / Time Sulfa (Sulfonamide Allergy Mild HEADACHE, Verified 12/19/22 12:06 Antibiotics) NAUSEA alcohol AdvReac Intermediate (FROM Verified 12/19/22 12:06 WINE) FLU LIKE SX'S, NAUSEA, DIARRHEA julian AdvReac Mild HEADACHE, Verified 12/19/22 12:06 NAUSEA Home Medications Medication Instructions Recorded Confirmed Type nitroglycerin 0.4 mg sublingual 0.4 mg sublingual Q5M PRN Angina 07/20/19 12/19/22 History tablet omega-3 fatty acids 1,000 mg 1,000 mg PO QAM 11/14/21 12/19/22 History capsule atorvastatin 10 mg tablet 5 mg PO QPM #45 tabs 06/07/22 12/19/22 Rx metoprolol tartrate 25 mg tablet 12.5 mg PO QPM #30 tabs 06/07/22 12/19/22 Rx cholecalciferol (vitamin D3) 125 125 mcg PO 3XWK 10/29/22 12/19/22 History mcg (5,000 unit) capsule mecobalamin (vitamin B12) 1,000 1,000 mcg PO 3XWK #30 tabs 10/29/22 12/19/22 Rx mcg chewable tablet oxymetazoline 0.05 % nasal spray 2 spray intranasal QPM PRN 10/29/22 12/19/22 History (Afrin (oxymetazoline)) allergies aspirin 81 mg tablet,delayed 81 mg PO DAILY 12/19/22 12/19/22 History release omeprazole 20 mg capsule,delayed 20 mg PO QAM 12/19/22 12/19/22 History release Past Med/Surg History Medical History Coronary artery disease Fall GERD (gastroesophageal reflux disease) History of anesthesia reaction pt states she believes after hemorrhoidectomy in 2009 @ [facility] the anesthesia she received caused her to have detention balance issues History of MS (myocardial infarction) (~04/24/21) had heart cath with 1 NORA placed--follows with Dr. Louie Mild ascending aorta dilatation 3.7 cm on ECHO 03/2017 Osteoarthritis Surgical History History of bilateral cataract extraction History of cardiac cath (~04/24/21) History of colonoscopy History of heart artery stent (~04/24/21) 1 NORA placed History of hemiarthroplasty of left shoulder (~12/2009) History of tonsillectomy and adenoidectomy History of tooth extraction S/P appendectomy S/P hemorrhoidectomy Family History Mother Breast cancer Stroke Grandmother (Maternal) Breast cancer Other No family history of adverse response to anesthesia Denies family history of Ovarian cancer Prostate cancer Diabetes Alzheimer disease Myocardial infarction Colorectal cancer Social History Smoking Status: Never smoker Second Hand Exposure: No; Do You Dip or Chew Tobacco: No; Hx Alcohol Use: No Hx Substance Use: No Preferred Language: Telugu Communication Ability: Effective Manager Creative Services Required: No Beliefs That Will Affect Care: None marital status: / Current Living Situation: Alone current occupational status: retired Feels Safe at Home: Yes Childhood Exposure to Second-Hand Smoke: No Dental Care, Regularly: Yes Physical Activity Frequency: 3-4 Times per Week Seatbelt Use: always Sunscreen Use: Yes Assistive Devices: Glasses Review of Systems Constitutional: + weakness; no fever, no chills and no fatigue Eyes: no blind spots, no diplopia, no loss of peripheral vision, no photophobia and no problem reported Ear, Nose, Mouth, Throat: no tinnitus, no hearing loss, no change in voice and no dysphagia Respiratory: no cough, no dyspnea and no wheezing Cardiovascular: no chest pain, no dyspnea, no syncope, no edema, no calf pain and no claudication Gastrointestinal: no nausea, no vomiting and no dysphagia Musculoskeletal: no back pain, no neck pain and no myalgia Integumentary: no rash, no lesions and no new lesions Neurologic: no gait abnormality, no falls, no numbness, no syncope and no headache(s) right arm dysfunction/weakness mild dysarthria had mild expressive aphasia upon arrival to ER - seems to be improving Psychiatric: no hopelessness, no anxiety and no confusion Endocrine: no polydipsia, no polyphagia and no polyuria Physical Exam Constitutional: WD/WN, vitals as above ENMT: external ear and nose normal, oropharynx normal Neck: trachea midline, no thyromegaly Respiratory: normal respiratory effort, lungs clear to auscultation Cardiovascular: RRR, no murmur, no edema Extremities: normal capillary refill; no calf tenderness and no edema Gastrointestinal (Abdomen): normal bowel sounds, soft, nontender, no hepatosplenomegaly Skin: no rashes, warm and dry Neurologic: normal touch/pain/proprioception, CN's II-XI intact bilaterally, deep tendon reflexes 2+ bilaterally, plantar reflexes intact bilaterally, moves all extremities and awake; no focal motor deficits and not confused very minimal dysarthria, patient is able to repeat sentences to me upon my examination Psychiatric: A+Ox3, euthymic affect Results & Data Results & Data Vital Signs (Past 12 Hours) Vital Signs Temp Pulse Resp BP Pulse Ox O2 Del Method 12/19/22 10:18 36.6 C 86 18 143/82 H 97 Room Air Laboratory Results Abnormal lab results 12/19/22 12/19/22 12/19/22 Range/Units 10:29 10:29 10:31 RDW Std Deviation 47.7 H (36.4-46.3) fL Lymph # (Auto) 1.09 L (1.2-3.4) K/uL POC Sodium 134 L (135-144) mmol/L Sodium 133 L (136-145) mmol/L POC Chloride 99 L (101-112) mmol/L POC Total CO2 21 L (24-31) mmol/L Glucose 119 H (70-99(Fasting)) mg/dl POC Glucose (other) 130 H (70-99) mg/dl Diagnostic Findings Head CT 12/19/22 10:27 CT OF THE HEAD WITHOUT CONTRAST CLINICAL HISTORY: neuro deficit, acute stroke suspected. Confusion. Right arm weakness. COMPARISON STUDY: No previous studies for comparison. TECHNIQUE: Helical axial images of the head were obtained without IV contrast. Automated exposure control was utilized for the study. A dose lowering technique was utilized adhering to the principles of ALARA. FINDINGS: No acute intracranial hemorrhage, midline shift or mass effect is present. The ventricular system is unremarkable. The basal cisterns are patent. No extra-axial collections are present. There is a possible 2.2 cm hypodense focus with loss of ramirez-white differentiation within the posterior left temporal lobe on axial image 18 of 32. White matter hypodensity suggests small vessel disease. There are no significant calvarial abnormalities. IMPRESSION: 1. No acute intracranial hemorrhage or mass effect. 2. Possible 2.2 cm hypodense focus with loss of ramirez-white differentiation within the posterior left temporal lobe. This may be artifactual however an acute infarct could appear similar. ACT 112: Negative or not required by law. Electronically signed by: Hardeep Warren M.D. 12/19/2022 10:52 AM Head CTA 12/19/22 10:27 CTA ANGIOGRAPHY OF THE HEAD CLINICAL HISTORY: neuro deficit, acute stroke suspected COMPARISON STUDY: No previous studies for comparison. TECHNIQUE: Helical axial images of the head were obtained following uneventful intravenous administration of 112 cc of Optiray. Sagittal and coronal reconstructions were viewed as well as maximal intensity projections on an independent 3-D workstation. Automated exposure control was utilized for the study. A dose lowering technique was utilized adhering to the principles of ALARA. CT DOSE: 936.36 mGy.cm FINDINGS: No acute intracranial hemorrhage is identified on the head CT will be reported separately. Brain volume is normal. Ventricular system is normal. Basal cisterns are patent. There are no extra-axial collections. There is occlusion of a sylvian branch of the left middle cerebral artery on axial image 144 of 276. No additional sites of vessel occlusion are identified. There is no intracranial aneurysm. There is mild plaque within the bilateral cavernous carotids without stenosis. The left vertebral artery is dominant. The basilar artery is patent. Posterior cerebral arteries are patent. Major dural sinuses are patent. IMPRESSION: 1. Occlusion of a sylvian branch of the left middle cerebral artery. This likely accounts for the patient's symptoms. Findings discussed with Dr. Reeves at time of dictation. 2. No additional sites of vessel occlusion within the intracranial vessels. No aneurysms. ACT 112: Negative or not required by law. Electronically signed by: Hardeep Warren M.D. 12/19/2022 11:00 AM Neck CTA 12/19/22 10:27 CT ANGIOGRAPHY OF THE NECK WITH CONTRAST CLINICAL HISTORY: neuro deficit, acute stroke suspected COMPARISON STUDY: No previous studies for comparison. Technique: CT angiography of the carotid and vertebral arteries was obtained using Optiray and 3D reconstruction on an independent workstation. NASCET criteria was utilized. Automated exposure control was utilized for the study. A dose lowering technique was utilized adhering to the principles of ALARA. Findings: Visualized portions of the lung apices are unremarkable. There is no cervical lymphadenopathy. No acute cervical spine fracture is present. There is mild plaque within the distal left common carotid artery without stenosis. There is no stenosis within the bilateral common carotid, cervical internal carotid or vertebral arteries. The left vertebral artery is dominant. There is no dissection or aneurysm within the neck. Mild irregularity of the mid cervical left ICA without stenosis or dissection. IMPRESSION: 1. No stenosis or dissection within the bilateral common carotid, cervical internal carotid or vertebral arteries. 2. Mild atherosclerotic plaque within the distal left common carotid artery. ACT 112: Negative or not required by law. Electronically signed by: Hardeep Warren M.D. 12/19/2022 10:57 AM Supervising Physician Co-Signing Physician Notes Patient seen and examined, chart reviewed, case discussed with Dee Dee Guzman PA-C and I agree with the assessment and plan as above except as otherwise noted Labs and images reviewed [facility] seen at the bedside. She endorses a history of onset of initial right arm tingling and paresthesia 5 AM this morning, felt normal when going to bed last night. She reports initially she had difficulty forming words although had a good understanding of the words she wanted to say and had no problems understanding the speech of others. She notes that she did have some notes and tingling in her right arm and it felt "weird "but not necessarily weak. Since being in the ER symptoms have improved, she still has a little difficulty forming words but overall feels she is speaking much better and right arm is 90% back to normal and is not weak just feels "a little strange ". Discussed that she is found to have a sylvian branch occlusion of her MCA which likely corre lates with ramirez-white matter differentiation loss in the CT suggesting acute CVA. This was discussed with [place] neurology and TNKase was not recommended due to last known normal, and thrombectomy was not recommended due to improving and minimal symptoms with distal position of the embolus. At time of exam she is breathing normally, heart rate is regular, she moves upper and lower extremities equally and has intact sensation to soft touch in right hand and left hand bilaterally although qualitatively feels like touch is a little different in her right. Stain Dipper strength is 5/5 bilaterally. Speech is mostly fluent, with some pauses and some intermittent slurring. Agree with admission with permissive hypertension control with initial 24-hour goals of under 220/120 with labetalol, obtaining an MRI overnight, and continuing DAPT for at least 3 weeks. No evidence of severe carotid stenosis requiring vascular intervention. No evidence of cardioembolic origin, echo is pending. We will follow overnight, if any new/worsening deficits obtain stat repeat CThead. Agree with assessment and management above PG Care Time/CCT Total # of Minutes Spent Total Time Spent with Patient: Total time spent is greater than 50% in coordination of care (as documented) at patient's floor/unit and/or counseling patient: Coding Level of Care Code 96133 INT INP/OBS CARE 2/MIN Diagnoses Left temporal lobe infarction I63.89 Coronary artery disease I25.10 Dyslipidemia E78.5 GERD (gastroesophageal reflux disease) K21.9 Vitamin D deficiency disease E55.9 Vitamin B12 deficiency E53.8
[2022-12-19] MEDS ORDERED: ACETAMINOPHEN 325 MG TAB PO STA (15:39)
--- NOTE | 2022-12-19 15:44 | XCELERA ---
[id number]
[2022-12-19] MEDS ORDERED: LABETALOL HCL IV 5 MG/ML 20ML IV PRN (16:01)
--- NOTE | 2022-12-19 20:10 | Magnetic Resonance Report ---
MRI OF THE BRAIN WITHOUT CONTRAST CLINICAL HISTORY: Stroke. COMPARISON STUDY: Head CT and CTA of the head performed earlier today. TECHNIQUE: Utilizing a 1.5 Joselyn magnet and dedicated coil, multiplanar, multiecho imaging of the bra in was performed without IV contrast. FINDINGS: Several hyperintense foci on the diffusion-weighted sequence within the left temporal and p arietal lobes measure up to 1.3 cm. ADC map is compromised by artifact. However, these represent smal l acute infarcts. There is also a small 5 mm acute infarct within the right frontal lobe on axial jc ge . There is no mass effect. No acute intracranial hemorrhage, midline shift or mass effect is present. Ventricular system is normal. Basal cisterns are patent. There are no extra-axial collect ions. No intracranial masses are identified on this unenhanced exam. Numerous white matter T2 hyperin tense foci suggest small vessel disease. IMPRESSION: Several small acute infarcts within left temporal, left parietal parietal and right fron allison lobes, as described above. No mass effect. No hemorrhage. ACT 112: Negative or not required by law. Electronically signed by: Hardeep Warren M.D. 12/19/2022 8:08 PM
[2022-12-19] MEDS ORDERED: ATORVASTATIN 10 MG TAB PO SCH (21:00)
[2022-12-20] MEDS: ACETAMINOPHEN 325 MG TAB PO PRN ×2 (00:17→14:10)
[2022-12-20] MEDS ORDERED: MELATONIN 3 MG TAB PO PRN (00:30)
[2022-12-20 04:44] LABS: Basophils # (auto) 0.04 K/uL (0-0.2); Basophils % (auto) 0.7 %; Eosinophils # (auto) 0.12 K/uL (0-0.50); Hematocrit (blood only) 38.8 % (37.0-47.0); Hemoglobin 13.1 g/dl (12.0-16.0); Immature Granulocytes # (auto) 0.02 K/uL (0.01-0.20); Immature Granulocytes % (auto) 0.3 %; Lymphocytes # (auto) 1.13 K/uL (1.2-3.4); Lymphocytes % (auto) 19.3 %; Mean Corpuscular Hemoglobin 31.6 pg (25.0-34.0); Mean Corpuscular Hgb Conc 33.8 g/dL (32.0-36.0); Mean Corpuscular Volume 93.5 fL (80.0-100.0); Mean Platelet Volume 10.8 fL (9.4-12.4); Monocytes # (auto) 0.51 K/uL (0.11-0.59); Monocytes % (auto) 8.7 %; Neutrophils # (auto) 4.04 K/uL (1.40-6.50); Platelet Count 183 K/uL (130-400); RDW Standard Deviation 48.4 fL (36.4-46.3); Red Blood Count 4.15 M/uL (4.20-5.40); White Blood Count 5.86 K/ul (4.8-10.8)
[2022-12-20 04:54] LABS: Prothrombin Time 11.1 Seconds (9.0-12.0)
[2022-12-20 05:03] LABS: BUN Creatinine Ratio 12.7 (10-20); Calcium 9.1 mg/dl (8.6-10.3); Chol HDL Ratio 1.8 (0-5); Creatinine Clr Calc Pharmacy 42.6 ml/min; Est GFR (Non-African American) 52.6 ml/min; Potassium 3.9 mmol/L (3.5-5.1)
[2022-12-20 07:28] LABS: Estimated Average Glucose 120 mg/dl; Hemoglobin A1C 5.8 % (4.5-5.6)
--- NOTE | 2022-12-20 08:39 | Neurology Consultation ---
Date of Consultation December 20, 2022 Assessment & Plan (1) Left temporal lobe infarction: Embolic appearing infarct with medium vessel occlusion, now with resolved symptoms, NIHSS 0 today. Suspect this is cardioembolic, likely paroxysmal afib. Echo is unremarkable, LDL 19 on lipitor 5mg. Agree with DAPT for 21 days but in the meantime will need further cardiac monitoring with zio patch. -- Outpatient prolonged EKG monitoring for occult afib -- Aspirin 81mg daily and plavix 75mg daily for 21 days, then plavix 75mg daily -- Lipitor 5mg daily - LDL at goal -- Neurology followup in 4-6 weeks, please contact us with additional questions Telehealth Consultation Telehealth Information Telehealth Information: I performed this visit using a real-time telehealth connection between my location and the patients location ([facility]). After connecting through interactive tele-video, patient was identified by name and date of and/or wristband check.Patient (or authorized healthcare r epresentative) was informed that this was a telemedicine visit and it was being conducted confidentially over secure lines. My office door was closed and no one else was present in the room with me.Patient (or authorized healthcare direct marketing representative) provided consent to proceed with the visit, expressed an understanding of privacy and security of the telemedicine visit, and gave permission to have a hospital direct marketing representative in the room in order to assist with the visit and to conduct portions of the visit, as needed. I informed the patient (or authorized healthcare direct marketing representative) that I reviewed their record and presented the opportunity for them to ask any questions regarding the visit today. The patient agreed to participate. History of Present Illness Reason for Consultation: Stroke Requesting Physician: Dr. Blank Attending Physician: Dustin Blank MD History of Present Illness Mercy So is a 77 yo F presenting with word finding difficulties and R hand numbness yesterday. Symptoms began abruptly yesterday and she drove herself to the ED when they remained persistent. She reports that she was having difficulty reading and finding her words but no trouble with comprehension. She has never had a stroke in the past and has been taking a daily aspirin since she her UT. Today she reports her speech is much better and she is able to use her R hand without difficulty. Allergies Allergy/AdvReac Type Severity Reaction Status Date / Time Sulfa (Sulfonamide Allergy Mild HEADACHE, Verified 12/19/22 12:06 Antibiotics) NAUSEA alcohol AdvReac Intermediate (FROM Verified 12/19/22 12:06 WINE) FLU LIKE SX'S, NAUSEA, DIARRHEA julian AdvReac Mild HEADACHE, Verified 12/19/22 12:06 NAUSEA Home Medications Medication Instructions Recorded Confirmed Type nitroglycerin 0.4 mg sublingual 0.4 mg sublingual Q5M PRN Angina 07/20/19 12/19/22 History tablet omega-3 fatty acids 1,000 mg 1,000 mg PO QAM 11/14/21 12/19/22 History capsule atorvastatin 10 mg tablet 5 mg PO QPM #45 tabs 06/07/22 12/19/22 Rx metoprolol tartrate 25 mg tablet 12.5 mg PO QPM #30 tabs 06/07/22 12/19/22 Rx cholecalciferol (vitamin D3) 125 125 mcg PO 3XWK 10/29/22 12/19/22 History mcg (5,000 unit) capsule mecobalamin (vitamin B12) 1,000 1,000 mcg PO 3XWK #30 tabs 10/29/22 12/19/22 Rx mcg chewable tablet oxymetazoline 0.05 % nasal spray 2 spray intranasal QPM PRN 10/29/22 12/19/22 History (Afrin (oxymetazoline)) allergies aspirin 81 mg tablet,delayed 81 mg PO DAILY 12/19/22 12/19/22 History release omeprazole 20 mg capsule,delayed 20 mg PO QAM 12/19/22 12/19/22 History release Patient History Medical History Coronary artery disease Fall GERD (gastroesophageal reflux disease) History of anesthesia reaction pt states she believes after hemorrhoidectomy in 2009 @ [facility] the anesthesia she received caused her to have fdc balance issues History of UT (myocardial infarction) (~04/24/21) had heart cath with 1 NORA placed--follows with Dr. Louie Mild ascending aorta dilatation 3.7 cm on ECHO 03/2017 Osteoarthritis Surgical History History of bilateral cataract extraction History of cardiac cath (~04/24/21) History of colonoscopy History of heart artery stent (~04/24/21) 1 NORA placed History of hemiarthroplasty of left shoulder (~12/2009) History of tonsillectomy and adenoidectomy History of tooth extraction S/P appendectomy S/P hemorrhoidectomy Family History Mother Breast cancer Stroke Grandmother (Maternal) Breast cancer Other No family history of adverse response to anesthesia Denies family history of Ovarian cancer Prostate cancer Diabetes Alzheimer disease Myocardial infarction Colorectal cancer Social History Smoking Status: Never smoker Second Hand Exposure: No; Do You Dip or Chew Tobacco: No; Hx Alcohol Use: No Hx Substance Use: No Preferred Language: Pakistani Communication Ability: Effective Servicer Travel Trailers Required: No Beliefs That Will Affect Care: None marital status: / Current Living Situation: Alone current occupational status: retired Other Information That Helps Us Care for You: No Feels Safe at Home: Yes Safety Concerns: Feels Safe At This Time Childhood Exposure to Second-Hand Smoke: No Dental Care, Regularly: Yes Physical Activity Frequency: 3-4 Times per Week Seatbelt Use: always Sunscreen Use: Yes Assistive Devices: Glasses Review of Systems +word finding difficulty Physical Exam Neurological Examination: Mental Status: Awake and alert. Oriented to person, place, and time. Fluent. Comprehension intact. Affect appropriate. Cranial Nerves: II: Reads NIHSS cards, ball grossly intact. III/IV/: Versions intact without nystagmus, no gaze preference. VII: Facial expression symmetric Motor: Strength was symmetric. Pronator drift was absent. There were no abnormal movements. Coordination: Finger to nose was intact. Reflexes: Unable to assess over telemedicine Results & Data Vital Signs (Past 12 Hours) Vital Signs Temp Pulse Pulse Resp BP Pulse Ox O2 Del Method 12/20/22 07:27 36.8 C 67 18 107/63 96 Room Air 12/20/22 04:10 70 12/20/22 02:22 36.7 C 64 18 102/56 L 94 Room Air 12/19/22 23:01 36.7 C 62 18 119/70 95 Room Air 12/19/22 22:19 74 Laboratory Results Abnormal lab results 0512/19/22 12/19/22 Range/Units 10:29 10:29 10:31 RBC (4.20-5.40) M/uL RDW Std Deviation 47.7 H (36.4-46.3) fL Lymph # (Auto) 1.09 L (1.2-3.4) K/uL POC Sodium 134 L (135-144) mmol/L Sodium 133 L (136-145) mmol/L POC Chloride 99 L (101-112) mmol/L POC Total CO2 21 L (24-31) mmol/L Glucose 119 H (70-99(Fasting)) mg/dl POC Glucose (other) 130 H (70-99) mg/dl Hemoglobin A1c (4.5-5.6) % Troponin I High Sens (0-14) pg/ml 12/19/22 12/20/22 12/20/22 Range/Units 21:18 04:13 04:13 RBC (4.20-5.40) M/uL RDW Std Deviation (36.4-46.3) fL Lymph # (Auto) (1.2-3.4) K/uL POC Sodium (135-144) mmol/L Sodium 134 L (136-145) mmol/L POC Chloride (101-112) mmol/L POC Total CO2 (24-31) mmol/L Glucose (70-99(Fasting)) mg/dl POC Glucose (other) (70-99) mg/dl Hemoglobin A1c (4.5-5.6) % Troponin I High Sens 68.0 H* D 39.0 H D (0-14) pg/ml 12/20/22 12/20/22 Range/Units 04:13 04:14 RBC 4.15 L (4.20-5.40) M/uL RDW Std Deviation 48.4 H (36.4-46.3) fL Lymph # (Auto) 1.13 L (1.2-3.4) K/uL POC Sodium (135-144) mmol/L Sodium (136-145) mmol/L POC Chloride (101-112) mmol/L POC Total CO2 (24-31) mmol/L Glucose (70-99(Fasting)) mg/dl POC Glucose (other) (70-99) mg/dl Hemoglobin A1c 5.8 H (4.5-5.6) % Troponin I High Sens (0-14) pg/ml Diagnostic Findings MRI - scattered areas of restricted diffusion CTA - L M2 occlusion
[2022-12-20] MEDS ORDERED: CLOPIDOGREL BISULFATE 75 MG TAB PO SCH (09:00)
[2022-12-20] MEDS ORDERED: ASPIRIN 81 MG ECTAB PO SCH (09:00)
[2022-12-20] MEDS ORDERED: ATORVASTATIN 10 MG TAB PO SCH (09:00)
[2022-12-20] MEDS ORDERED: DOCUSATE SODIUM 100 MG CAP PO SCH (09:00)
--- NOTE | 2022-12-20 15:59 | Communication Note ---
Date of Service: December 20, 2022 By CMS guidelines, a determination that the admission or continued stay is not medically necessary has been made by a member of the UR committee and a physici an for this hospital stay, therefore a Code 44 will be completed and the Inpatient admission will be changed to outpatient.
--- NOTE | 2022-12-20 17:12 | Communication Note ---
Date of Service: December 20, 2022 By CMS guidelines, a determination that the admission or continued stay is not medically necessary has been made by a member of the UR committee and a physic candis for this hospital stay, therefore a Code 44 will be completed and the Inpatient admission will be changed to outpatient.
--- NOTE | 2022-12-20 17:30 | Discharge Summary ---
Date of Service December 20, 2022 Admission HPI Per Admitting Provider Mercy So is a 77 year old female with a past medical history of CAD, B12 deficiency and vit D deficiency who presented to the ER today with complaints of difficulty with her speech and right arm dysfunction. Patient states she awoke at 5AM with "funny" feeling in her right arm. Last known well was prior to going to bed last evening st 10 PM. Patient tells me that she lives alone with her cats and she states that her right arm didn't feel right, was no numb but maybe felt weak and was not functioning normally. Patient states when she arrived here she noticed she had difficulty speaking, per ER records she had some expressive aphasia and was not able to repeat sentences. Currently she is able to repeat sentences but has some dysarthria. She has never had a CVA or TIA in the past. Upon arrival to the ER she was out of the window for tPA. Dr Villela ordered CT head, CTA neck and CTA head. CT imaging of the head as well as CT angiography. Dr Villela spoke with on-call stroke neurology at [facility], Dr. Ward. CT imaging is suggestive of a left temporal lobe infarct with sylvian branch of the left MCA noted to be occluded. After disuccsing with ER physician Dr Villela, who stated that Dr. Ward, stated that patient is thought to be a poor candidate for potential interventional procedures/thrombectomy given that her NIH scale score is low (1) and he does note on his review of CT imaging that there appears to be some flow still noted distal to the sylvian branch occlusion. Imaging and labs done in ER and seen below. Patient has received ASA 324mg and Plavix 300mg at 10:55 AM. Principal Diagnosis Embolic stroke Expressive aphasia resolving Discharge Exam Patient has fluent speech with some word finding issues No focal confrontational neurological deficits Discharge Data Allergies Allergy/AdvReac Type Severity Reaction Status Date / Time Sulfa (Sulfonamide Allergy Mild HEADACHE, Verified 12/19/22 12:06 Antibiotics) NAUSEA alcohol AdvReac Intermediate (FROM Verified 12/19/22 12:06 WINE) FLU LIKE SX'S, NAUSEA, DIARRHEA julian AdvReac Mild HEADACHE, Verified 12/19/22 12:06 NAUSEA Consultations 12/19/22 11:52 ED Decision to Admit Stat 12/19/22 16:01 Consult Neurology Routine Ordered Studies Head CT 12/19/22 10:27 CT OF THE HEAD WITHOUT CONTRAST CLINICAL HISTORY: neuro deficit, acute stroke suspected. Confusion. Right arm weakness. COMPARISON STUDY: No previous studies for comparison. TECHNIQUE: Helical axial images of the head were obtained without IV contrast. Automated exposure control was utilized for the study. A dose lowering technique was utilized adhering to the principles of ALARA. FINDINGS: No acute intracranial hemorrhage, midline shift or mass effect is present. The ventricular system is unremarkable. The basal cisterns are patent. No extra-axial collections are present. There is a possible 2.2 cm hypodense focus with loss of ramirez-white differentiation within the posterior left temporal lobe on axial image 18 of 32. White matter hypodensity suggests small vessel disease. There are no significant calvarial abnormalities. IMPRESSION: 1. No acute intracranial hemorrhage or mass effect. 2. Possible 2.2 cm hypodense focus with loss of ramirez-white differentiation within the posterior left temporal lobe. This may be artifactual however an acute infarct could appear similar. Electronically signed by: Hardeep Warren M.D. 12/19/2022 10:52 AM Head CTA 12/19/22 10:27 CTA ANGIOGRAPHY OF THE HEAD CLINICAL HISTORY: neuro deficit, acute stroke suspected COMPARISON STUDY: No previous studies for comparison. TECHNIQUE: Helical axial images of the head were obtained following uneventful intravenous administration of 112 cc of Optiray. Sagittal and coronal reconstructions were viewed as well as maximal intensity projections on an independent 3-D workstation. Automated exposure control was utilized for the study. A dose lowering technique was utilized adhering to the principles of ALARA. CT DOSE: 936.36 mGy.cm FINDINGS: No acute intracranial hemorrhage is identified on the head CT will be reported separately. Brain volume is normal. Ventricular system is normal. Basal cisterns are patent. There are no extra-axial collections. There is occlusion of a sylvian branch of the left middle cerebral artery on axial image 144 of 276. No additional sites of vessel occlusion are identified. There is no intracranial aneurysm. There is mild plaque within the bilateral cavernous carotids without stenosis. The left vertebral artery is dominant. The basilar artery is patent. Posterior cerebral arteries are patent. Major dural sinuses are patent. IMPRESSION: 1. Occlusion of a sylvian branch of the left middle cerebral artery. This likely accounts for the patient's symptoms. Findings discussed with Dr. Reeves at time of dictation. 2. No additional sites of vessel occlusion within the intracranial vessels. No aneurysms. Electronically signed by: Hardeep Warren M.D. 12/19/2022 11:00 AM Neck CTA 12/19/22 10:27 CT ANGIOGRAPHY OF THE NECK WITH CONTRAST CLINICAL HISTORY: neuro deficit, acute stroke suspected COMPARISON STUDY: No previous studies for comparison. Technique: CT angiography of the carotid and vertebral arteries was obtained using Optiray and 3D reconstruction on an independent workstation. NASCET criteria was utilized. Automated exposure control was utilized for the study. A dose lowering technique was utilized adhering to the principles of ALARA. Findings: Visualized portions of the lung apices are unremarkable. There is no c ervical lymphadenopathy. No acute cervical spine fracture is present. There is mild plaque within the distal left common carotid artery without stenosis. There is no stenosis within the bilateral common carotid, cervical internal carotid or vertebral arteries. The left vertebral artery is dominant. There is no dissection or aneurysm within the neck. Mild irregularity of the mid cervical left ICA without stenosis or dissection. IMPRESSION: 1. No stenosis or dissection within the bilateral common carotid, cervical internal carotid or vertebral arteries. 2. Mild atherosclerotic plaque within the distal left common carotid artery. Electronically signed by: Hardeep Warren M.D. 12/19/2022 10:57 AM Brain MRI 12/19/22 16:01 MRI OF THE BRAIN WITHOUT CONTRAST CLINICAL HISTORY: Stroke. COMPARISON STUDY: Head CT and CTA of the head performed earlier today. TECHNIQUE: Utilizing a 1.5 Joselyn magnet and dedicated coil, multiplanar, multiecho imaging of the brain was performed without IV contrast. FINDINGS: Several hyperintense foci on the diffusion-weighted sequence within the left temporal and parietal lobes measure up to 1.3 cm. ADC map is comprom ised by artifact. However, these represent small acute infarcts. There is also a small 5 mm acute infarct within the right frontal lobe on axial image . There is no mass effect. No acute intracranial hemorrhage, midline shift or mass effect is present. Ventricular system is normal. Basal cisterns are patent. There are no extra-axial collections. No intracranial masses are identified on this unenhanced exam. Numerous white matter T2 hyperintense foci suggest small vessel disease. IMPRESSION: Several small acute infarcts within left temporal, left parietal parietal and right frontal lobes, as described above. No mass effect. No hemorrhage. Electronically signed by: Hardeep Warren M.D. 12/19/2022 8:08 PM Hospital Course (1) Left temporal lobe infarction: Acute, unstable 77 year old with CAD who awoke this AM with expressive aphasia and last known well was last evening prior to bed. NIH score was low at 1. CTA imaging gomes ggestive of a left temporal lobe infarct with sylvian branch of the left MCA noted to be occluded.metal model maker stroke neurology visit with Dr Villela and Dr Ward at [facility] was done earlier. Dr Ward stated patient is thought to be a poor candidate for potential interventional procedures given that her NIH scale score is low and he does note on his review of CT imaging that there appears to be some flow still noted distal to the sylvian branch occlusion. - - Neurology consult Dr. Alcantara Embolic appearing infarct with medium vessel occlusion, now with resolved symptoms, NIHSS 0 today. Suspect this is cardioembolic, likely paroxysmal afib. Echo is unremarkable, LDL 19 on lipitor 5mg. Agree with DAPT for 21 days but in the meantime will need further cardiac monitoring consider zio patch. -- Outpatient prolonged EKG monitoring for occult afib -- Aspirin 81mg daily and plavix 75mg daily for 21 days, then plavix 75mg daily -- Lipitor 5mg daily - LDL at goal -- Neurology followup in 4-6 weeks, (2) Coronary artery disease: Chronic Resume metoprolol at time of discharge (3) Dyslipidemia: Chronic, stable Continue Atorvastatin 10mg (4) GERD (gastroesophageal reflux disease): Chronic, Stable l change to Pepcid due to interaction with Benadryl (5) Vitamin D deficiency disease: chronic, stable continue Vitamin D replacement (6) Vitamin B12 deficiency: Chronic stable Continue replacement Total Time Total Time Spent Total Time Spent (In Minutes): It required greater than 30 minutes to prepare this patient for discharge Discharge Plan Discharge Items Patient Disposition: Home - Home Health Services Reason For Visit: ACUTE STROKE Discharge Diagnosis: stoke, several small strokes, left temporal lobe, left parietal lobes, right frontal lobes speech affected Activity: Resume your previous activity Non-emergency contact: Primary Care Provider Call non-emergency contact if: your symptoms worsen Follow-up/Referrals: Isiah Perkins MD [Primary Care Provider] - Aidan Alcantara MD [Physician] - ([place] will call in am with appt date and time.) Diet: Heart Healthy Addtl Attending Provider Instructions: Risk Factors for Stroke: You can reduce your chances of stroke by working with your medical provider to adopt a healthy lifestyle. Some specific ways to lower your chance of stroke are: * If you are a smoker, now is the time to stop smoking cigarettes * If you are diabetic, improve the control of your blood sugars * Avoid excessive amounts of alcohol * Control high blood pressure * Lose weight if you are overweight * Be sure to lead an active lifestyle * Eat a healthy diet low in salt, cholesterol and fat You should know about other risk factors for stroke that you are unable to control. These include: * Age 55 years or older * Male gender * Certain racial groups: , or / * Family History of Stroke, Mini stroke or Heart Attack * Sickle Cell Disease Follow Up: It is important for you to keep your follow up appointments with your medical provider. Who to Call and When: Medical Emergencies: Call 911 immediately if you experience any of the following warning signs and symptoms of Stroke: * Sudden numbness or weakness of the face, arm or leg, especially on one side of the body * Sudden confusion, trouble speaking or understanding * Sudden trouble seeing in one or both eyes * Sudden trouble walking, dizziness, loss of balance or coordination * Sudden severe headache with no cause Do not delay calling 911 if you experience any warning signs or symptoms of a stroke. Delay in seeking medical attention may affect what treatments can be given to you. . Addtl Field Worker Provider Instructions: You will be on 2 medications to help reduce further stroke symptoms both aspirin and Plavix We need to have an outpatient cardiac event monitor to look for atrial fibrillation if you have signs of atrial fibrillation will then be transition to more formal blood thinner which likely stay on forever Please participate outpatient speech therapy follow up with out pt neurology in 4-6 weeks Pending Studies at Discharge: No Stand-Alone Forms: My [facility] [employer], Smoking Cessation Medications and DC Order Prescriptions: New clopidogrel [Plavix] 75 mg tablet 75 mg PO DAILY Qty: 30 5RF famotidine [Pepcid] 20 mg tablet 20 mg PO DAILY Qty: 30 5RF Continued metoprolol tartrate 25 mg tablet 12.5 mg PO QPM Qty: 30 11RF oxymetazoline [Afrin (oxymetazoline)] 0.05 % spray,non-aerosol 2 spray intranasal QPM PRN (Reason: allergies) cholecalciferol (vitamin D3) 125 mcg (5,000 unit) capsule 125 mcg PO 3XWK mecobalamin (vitamin B12) 1,000 mcg tablet,chewable 1,000 mcg PO 3XWK Qty: 30 0RF nitroglycerin 0.4 mg tablet, sublingual 0.4 mg SL Q5M PRN (Reason: Angina) omega-3 fatty acids 1,000 mg capsule 1,000 mg PO QAM aspirin 81 mg Tablet,Delayed Release (Dr/Ec) 81 mg PO DAILY Changed atorvastatin 10 mg tablet 10 mg PO QPM Qty: 45 3RF Discontinued omeprazole 20 mg capsule,delayed release(DR/EC) 20 mg PO QAM Discharge Orders: Discharge Order (Routine); Ordered 12/20/22 Ordered By: Dustin Blank Admission Data Admit Date/Time: 12/19/22 13:15 Attending Provider: Dustin Blank Admit Provider: Hadley Garcia Primary Care Provider: Isiah Perkins V. Other Providers: Hadley Garcia Other Interventions: Discharge Summary Assessment (RN) Last Done: 12/20/22 16:49 Coding Level of Care Code 24853 INP/OBS DISCH >30 MIN Diagnoses Left temporal lobe infarction I63.89 Coronary artery disease I25.10 Dyslipidemia E78.5 GERD (gastroesophageal reflux disease) K21.9 Vitamin D deficiency disease E55.9 Vitamin B12 deficiency E53.8
== END 2022-12-20 17:07 | disposition home or self-care (01) | DRG 66 ==
LOC: ED 10:15 → EDINP 13:15 → INTOOBSV 13:15 → SUATTDRO 13:15 → EDINP 16:00 → 2S 18:58